=== PATIENT | male | born 1945 | race Caucasian/White ===

== ENCOUNTER 2019-02-14 21:21 | Emergency (ER) | payer MEDICARE, OTHER, SELFPAY ==
[2019-02-14 21:30] VITALS: BP 190/88; PULSE 80; RESP 16; TEMP 36.9; O2SAT 99; BMI 30.1
--- NOTE | 2019-02-14 21:57 | ED_ITS ---
HPI - Dental/Oral General Chief complaint: Dental/Oral Stated complaint: states he has an infected tooth Time Seen by Provider: 02/14/19 21:49 Source: patient Mode of arrival: ambulatory Limitations: no limitations History of Present Illness HPI Narrative: Patient is a 73-year-old male who states that a couple days ago he was flossing his teeth and afterwards started having pain in his left upper mouth. He has a prior physician and he thinks that maybe wall flossing he caused a small infection of the gum in this area. He has some pain medication at home for another issue which he has been taking but feels that he could potentially need antibiotics. No fevers. No problems breathing. No your symptoms. Related Data Home Medications Medication Instructions Recorded Confirmed [TORAVASTATIN] #0 11/29/17 aspirin 325 mg PO QDAY #0 11/29/17 carvedilol [Coreg] 12.5 mg PO BID #0 11/29/17 donepezil [Aricept] 10 mg PO HS #0 11/29/17 lisinopril 20 mg PO QDAY #0 11/29/17 omeprazole 20 mg PO QDAY #0 11/29/17 Previous Rx's Medication Instructions Recorded penicillin V potassium 500 mg PO QID 6 Days #24 tab 02/14/19 penicillin V potassium 500 mg PO QID 7 Days #28 tab 02/14/19 Allergies Allergy/AdvReac Type Severity Reaction Status Date / Time smallpox vaccine,live Allergy Unknown Unverified 06/17/18 09:00 [SMALLPOX VACCINE,LIVE] Review of Systems Constitutional Denies fever(s) and Denies headache(s) ENT Ears, Nose, Mouth, and Throat: Reports dental pain, Denies vertigo, Denies dizziness, Denies headache(s), Denies neck pain, Denies sore throat and Denies throat swelling Comments: Left upper mouth dental pain Cardiovascular Denies dyspnea Respiratory Denies cough and Denies dyspnea Musculoskeletal Denies neck pain Integumentary/Breasts Denies rash Neurologic Denies vertigo, Denies dizziness and Denies headache(s) Hematologic/Lymphatic Denies easy bleeding and Denies easy bruising Allergic/Immunologic Denies throat swelling FORMERLY [facility] Medical History Hyperlipidemia (Acute) Hypertension (Acute) Social History Smoking Status: Never smoker Social History Smoking Status: Never smoker Exam Initial Vital Signs Initial Vital Signs: Vital Signs Temperature 98.4 F 02/14/19 21:30 Pulse Rate 80 02/14/19 21:30 Respiratory Rate 16 02/14/19 21:30 Blood Pressure 190/88 H 02/14/19 21:30 Pulse Oximetry 99 02/14/19 21:30 Const General: cooperative, healthy appearing, comfortable, well developed, well groomed and No acute distress Orientation: alert and awake HENMT Head: normal to inspection Ears: TM's normal bilaterally Nose: external nose normal Face and sinus: normal facial exam Mouth: oral mucosae normal Teeth and gingiva: other (Red area above tooth 14. ) Resp Effort & Inspection: normal respiratory effort Auscultation: clear to auscultation bilaterally Skin Lesions: no lesions Rashes: no rashes Psych Appearance: grossly normal and well kempt Course Orders Ordered: Discontinued Medications Penicillin V Potassium (Penicillin Vk 250mg Tab Prepack) 1 bottle MISC SEEINSTR ONE Stop: 02/14/19 21:58 Last Admin: 02/14/19 22:07 Dose: 1 bottle Penicillin V Potassium (Veetids) 500 mg PO NOW ONE Stop: 02/14/19 21:58 Last Admin: 02/14/19 22:07 Dose: Not Given Vital Signs - 8 hr 02/14/19 21:30 Temperature 98.4 F Pulse Rate 80 Respiratory Rate 16 Blood Pressure 190/88 H Pulse Oximetry 99 MDM - Dental/Oral MDM Narrative Medical decision making narrative: No respiratory issues. Patient does have a red area in the gum above the left upper teeth. There is no defined abscess that can be drained here in the emergency department. Was given a prepack for penicillin and a prescription for the remainder of this medication. He has pain medication at home. He has no respiratory issues. Is going to call to make contact with his dentist. He was given strict return precautions and follow-up instructions. He expressed understanding and agreement with plan. Discharge Plan Departure Patient Disposition: Home Clinical Impression: Dental abscess Discharge Date/Time: 02/14/19 22:14 Interventions: ED Discharge Assessment Last Done: 02/14/19 22:12 Instructions: Tooth Abscess Activity Restrictions/Additional Instructions: You were given 1 day's worth of antibiotics here in the emergency department. The prescription is for the remaining course of this antibiotic. I do recommend that you may contact with a new dentist for a follow-up in the event that your symptoms do not improve. Return to the emergency department for any new or worsening symptoms Prescriptions: New penicillin V potassium 500 mg tablet 500 mg PO QID 7 Days Qty: 28 RF: 0 penicillin V potassium 500 mg tablet 500 mg PO QID 6 Days Qty: 24 RF: 0 No Action carvedilol [Coreg] 25 MG tablet 12.5 mg PO BID Qty: 0 RF: 0 lisinopril 20 MG tablet 20 mg PO QDAY Qty: 0 RF: 0 aspirin 325 MG tablet,delayed release (DR/EC) 325 mg PO QDAY Qty: 0 RF: 0 omeprazole 20 MG capsule,delayed release(DR/EC) 20 mg PO QDAY Qty: 0 RF: 0 [TORAVASTATIN] Qty: 0 RF: 0 donepezil [Aricept] 10 MG tablet 10 mg PO HS Qty: 0 RF: 0 Referrals: Didier Owusu MD [Primary Care Provider] -
[2019-02-14] MEDS: PENICILLIN 250 MG TAB PREPACK 1 BOTTLE MISC (22:07)
== END 2019-02-14 22:14 | disposition home or self-care (01) ==
PROVIDERS: Emergency Provider Emergency Medicine; Family Provider Internal Medicine; PCP Internal Medicine
DX: K04.7 Periapical abscess without sinus (principal)
CPT/HCPCS: 99282; 99283

== ENCOUNTER → 2020-07-29 19:12 | Outpatient (ROUT) | payer MEDICARE, OTHER, SELFPAY ==
[2020-07-29 19:30] LABS: Add Manual Diff / Slide Review NO; Basophils Absolute Auto 100 /uL (0-100); Basophils Percent Auto 0.9 % (0-2); Eosinophils Absolute Auto 100 /uL (0-450); Eosinophils Percent Auto 1.8 % (2-4); Hematocrit 32.1 % (41-53); Lymphocytes Absolute Auto 2000 /uL (1100-4500); Lymphocytes Percent Auto 29.8 % (25-40); Mean Corpuscular HGB Conc 34.2 % (30-36); Mean Corpuscular Hemoglobin 35.3 PG (26-34); Monocytes Absolute Auto 700 /uL (0-900); Monocytes Percent Auto 10.4 % (3-14); Neutrophils Absolute Auto 3800 /uL (1500-7000); Neutrophils Percent Auto 57.1 % (50-75); Platelet Count 286 X10^3/uL (150-400); Red Blood Cell Count 3.12 X10^6/uL (4.5-5.9); Red Cell Distribution Width 13.9 % (11.6-14.8); White Blood Cell Count 6.6 X10^3/uL (4.5-11.0)
[2020-07-29 19:36] LABS: Aspartate Aminotransferase 52 IU/L (17-59); BUN Creatinine Ratio 19.5 (6-22); Blood Urea Nitrogen 24 mg/dL (9-20); Calcium 7.5 mg/dL (8.4-10.2); Carbon Dioxide 25 mmol/L (22-32); Chloride 103 mmol/L (98-107); Cholesterol 129 mg/dL (140-199); Estimated Glomerular Filt Rate 57.4 mL/min (>60); Glucose 125 mg/dL (80-110); HDL Cholesterol 59 mg/dL (40-60); HEMOLYSIS < 15 (0-50); LDL Cholesterol Calculated 59 mg/dL (<100); Potassium 4.7 mmol/L (3.4-5.1); Sodium 134 mmol/L (137-145); Triglycerides 54 mg/dL (35-150)
[2020-07-29 20:06] LABS: Prostate Specific Antigen 4.15 ng/mL (0.10-4.00)
== END ==
PROVIDERS: Family Provider Internal Medicine; PCP Internal Medicine; Visit Provider Internal Medicine
DX: I10 Essential (primary) hypertension (principal); E78.2 Mixed hyperlipidemia; Z12.5 Encounter for screening for malignant neoplasm of prostate
CPT/HCPCS: 80048; 80061; 84153; 84450; 85025

== ENCOUNTER → 2020-09-21 15:46 | Outpatient (CLI) | payer MEDICARE, OTHER, SELFPAY | PROVIDERS: Family Provider Internal Medicine; PCP Internal Medicine; Visit Provider Specialist | DX: N39.0 Urinary tract infection, site not specified (principal); R39.9 Unspecified symptoms and signs involving the genitourinary system; N40.1 Benign prostatic hyperplasia with lower urinary tract symptoms; N13.8 Other obstructive and reflux uropathy | CPT/HCPCS: 87086; 99214 ==

== ENCOUNTER → 2021-03-09 13:39 | Outpatient (CLI) | payer MEDICARE, OTHER, SELFPAY ==
[2021-03-09 17:11] LABS: Prostate Specific Antigen 2.92 ng/mL (0.10-4.00)
== END ==
PROVIDERS: Family Provider Internal Medicine; PCP Internal Medicine; Referring Provider Specialist; Visit Provider Specialist
DX: N40.1 Benign prostatic hyperplasia with lower urinary tract symptoms (principal); R97.20 Elevated prostate specific antigen [PSA]; N13.8 Other obstructive and reflux uropathy; R39.9 Unspecified symptoms and signs involving the genitourinary system; Z87.898 Personal history of other specified conditions; R80.9 Proteinuria, unspecified
CPT/HCPCS: 36415; 51798; 81002; 84153; 99213

== ENCOUNTER → 2021-09-06 13:03 | Outpatient (CLI) | payer MEDICARE, OTHER, SELFPAY ==
--- NOTE | 2021-09-06 13:07 | DI.MRI.S_ITS ---
PROCEDURE: MR CERVICAL SPINE WO CON INDICATIONS: Anesthesia of skin TECHNIQUE: Noncontrast sagittal T1 spin echo and T2 fast spin echo, sagittal STIR, foraminal oblique sagittal T2 fast spin echo, and axial gradient echo or T2 fast spin echo through the cervical spine. COMPARISON: None. FINDINGS: Image quality: Excellent. Alignment and Curvature: There is loss of normal cervical lordosis. Mild grade 1 anterolisthesis of C4 on C5 is present. Bone Marrow: Marrow demonstrates normal overall signal. There is mild reactive signal throughout the endplates of the cervical and upper thoracic spine. Spinal Cord: Visualized spinal cord has normal size and signal. No cerebellar tonsillar herniation. Paraspinous Soft Tissues: No paravertebral masses. Prevertebral soft tissues are normal in thickness. C2-C3: Moderate disc desiccation. Mild disc height loss and diffuse disc bulge. Mild right greater than left facet and uncovertebral hypertrophy. Mild canal stenosis. Moderate bilateral foraminal stenosis. C3-C4: Severe disc height loss and desiccation. Mild diffuse disc bulge/osteophyte. Moderate facet and uncovertebral hypertrophy. Moderate to severe canal stenosis. Severe bilateral foraminal stenosis with bilateral C4 nerve root compression. C4-C5: Severe disc height loss and desiccation. Mild diffuse disc bulge. Moderate left greater than right facet and uncovertebral hypertrophy. Moderate to severe canal stenosis. Moderate bilateral foraminal stenosis. C5-C6: Moderate disc height loss and desiccation. Mild diffuse disc bulge with superimposed broad-based left paracentral and posterolateral protrusion. Moderate facet and uncovertebral hypertrophy bilaterally. Severe canal stenosis. Mild left cord flattening. Moderate right and severe left foraminal stenosis. Left C6 nerve root compression. C6-C7: Severe disc height loss and desiccation. Mild diffuse disc bulge with superimposed right paracentral protrusion. Mild facet and uncovertebral hypertrophy bilaterally. Moderate to severe canal stenosis. Minimal right cord flattening. Moderate bilateral foraminal stenosis. C7-T1: Severe disc height loss and desiccation. Mild diffuse disc bulge with superimposed broad-based left posterolateral protrusion. Mild facet and uncovertebral hypertrophy bilaterally. Moderate canal stenosis. Severe left and moderate right foraminal stenosis. Left C8 nerve root compression. IMPRESSION: 1. Multilevel degenerative disc and facet disease, as well as uncovertebral hypertrophy. 2. Multilevel canal stenoses, worst at C5-C6 and C6-C7, where there is minimal cord flattening. 3. Multilevel foraminal stenoses, worst at C3-C4, C5-C6, and C7-T1 where there is associated intraforaminal nerve root compression. Recommend correlation with clinical symptoms to ascertain relevance of these findings. Dictated by: Romero Castillo M.D. on 09/06/2021 at 14:27 Approved by: Romero Castillo M.D. on 09/06/2021 at 14:32
== END ==
PROVIDERS: Family Provider Internal Medicine; PCP Internal Medicine; Referring Provider Internal Medicine; Visit Provider Internal Medicine
DX: M50.31 Other cervical disc degeneration, high cervical region (principal); M48.02 Spinal stenosis, cervical region; R20.0 Anesthesia of skin
CPT/HCPCS: 72141

== ENCOUNTER → 2022-07-09 14:06 | Outpatient (CLI) | payer MEDICARE, OTHER, SELFPAY ==
[2022-07-09 16:39] LABS: Hematocrit 35.3 % (41-53); Hemoglobin 11.9 g/dL (13.5-17.5); Mean Corpuscular HGB Conc 33.6 % (30-36); Mean Corpuscular Hemoglobin 33.7 PG (26-34); Mean Corpuscular Volume 100.4 fL (80-100); Platelet Count 352 X10^3/uL (150-400); Red Blood Cell Count 3.52 X10^6/uL (4.5-5.9); Red Cell Distribution Width 13.5 % (11.6-14.8); White Blood Cell Count 8.7 X10^3/uL (4.5-11.0)
[2022-07-09 16:45] LABS: Hemoglobin A1C% w Est Avg Glu 4.9 % (4.0-6.0)
[2022-07-09 16:53] LABS: Alanine Aminotransferase 13 IU/L (<50); Albumin Globulin Ratio 1.1 (1.0-2.8); Alkaline Phosphatase 70 U/L (38-126); Aspartate Aminotransferase 30 IU/L (17-59); BUN Creatinine Ratio 22.4 (6-22); Bilirubin Total 0.3 mg/dL (0.2-1.3); Blood Urea Nitrogen 41 mg/dL (9-20); Calcium 8.5 mg/dL (8.4-10.2); Carbon Dioxide 21 mmol/L (22-32); Chloride 107 mmol/L (98-107); Cholesterol 142 mg/dL (140-199); Estimated Glomerular Filt Rate 38 mL/min (>60); Globulin 3.6 g/dL (1.7-4.1); Glucose 92 mg/dL (80-110); HDL Cholesterol 53 mg/dL (40-60); HEMOLYSIS < 15 (0-50); LDL Cholesterol Calculated 77 mg/dL (<100); Sodium 139 mmol/L (137-145); Total Protein 7.6 g/dL (6.3-8.2); Triglycerides 60 mg/dL (35-150)
[2022-07-09 17:26] LABS: TSH w/ Reflex to FT4 0.91 uIU/mL (0.47-4.68)
== END ==
PROVIDERS: Family Provider Internal Medicine; PCP Internal Medicine; Referring Provider Internal Medicine; Visit Provider Internal Medicine
DX: J31.2 Chronic pharyngitis (principal); R73.01 Impaired fasting glucose; I10 Essential (primary) hypertension; E78.2 Mixed hyperlipidemia; I25.10 Atherosclerotic heart disease of native coronary artery without angina pectoris
CPT/HCPCS: 36415; 80053; 80061; 83036; 84443; 85027; 87070

== ENCOUNTER → 2022-10-10 12:45 | Outpatient (CLI) | payer MEDICARE, OTHER, SELFPAY ==
--- NOTE | 2022-10-10 12:46 | DI.RAD.S_ITS ---
PROCEDURE: XR CHEST 2V INDICATIONS: shortness of breath TECHNIQUE: 2 views of the chest were acquired. COMPARISON: None. FINDINGS: Surgical changes and devices: None. Lungs and pleura: No consolidation. Prominent pulmonary markings. No pleural effusions or pneumothorax. Mediastinum: Mediastinal contours are normal. Heart size is normal. Bones and chest wall: No suspicious bony abnormalities. Soft tissues appear unremarkable. IMPRESSION: No consolidation. Prominent pulmonary markings. This could be due to emphysematous change or interstitial lung disease. Dictated by: Felix Marmolejo M.D. on 10/10/2022 at 13:52 Approved by: Felix Marmolejo M.D. on 10/10/2022 at 13:54
[2022-10-10 14:06] LABS: Hematocrit 34.4 % (41-53); Hemoglobin 11.5 g/dL (13.5-17.5); Mean Corpuscular HGB Conc 33.4 % (30-36); Mean Corpuscular Hemoglobin 32.4 PG (26-34); Mean Corpuscular Volume 97.2 fL (80-100); Platelet Count 279 X10^3/uL (150-400); Red Blood Cell Count 3.53 X10^6/uL (4.5-5.9); Red Cell Distribution Width 13.5 % (11.6-14.8); White Blood Cell Count 8.7 X10^3/uL (4.5-11.0)
[2022-10-10 14:35] LABS: Alanine Aminotransferase 16 IU/L (<50); Albumin Globulin Ratio 1.1 (1.0-2.8); Alkaline Phosphatase 77 U/L (38-126); Aspartate Aminotransferase 25 IU/L (17-59); BUN Creatinine Ratio 18.6 (6-22); Bilirubin Total 0.8 mg/dL (0.2-1.3); Blood Urea Nitrogen 40 mg/dL (9-20); Calcium 9.2 mg/dL (8.4-10.2); Carbon Dioxide 20 mmol/L (22-32); Chloride 103 mmol/L (98-107); Estimated Glomerular Filt Rate 31 mL/min (>60); Globulin 3.6 g/dL (1.7-4.1); Glucose 111 mg/dL (80-110); HEMOLYSIS < 15 (0-50); Potassium 5.1 mmol/L (3.4-5.1); Sodium 137 mmol/L (137-145); Total Protein 7.6 g/dL (6.3-8.2)
[2022-10-10 14:43] LABS: NT-proBNP (BNP-Adult 18+) 4640 pg/mL (<450)
== END ==
PROVIDERS: Family Provider Internal Medicine; PCP Internal Medicine; Referring Provider Internal Medicine; Visit Provider Internal Medicine
DX: I25.10 Atherosclerotic heart disease of native coronary artery without angina pectoris (principal); I50.22 Chronic systolic (congestive) heart failure; I10 Essential (primary) hypertension
CPT/HCPCS: 36415; 71046; 80053; 83880; 85027

== ENCOUNTER → 2022-10-18 12:06 | Outpatient (CLI) | payer MEDICARE, OTHER, SELFPAY ==
--- NOTE | 2022-10-18 12:08 | DI.ECHO.S_ITS ---
[facility] +---------+ : : [address] : [place] : : : : [id number] : : : : Phone: [phone]+ Echocardiogram Report + + :Name: JAVIER CAMARILLO Study Date: 10/18/2022 Height: 63 in : :[facility] ReadingLocation: Weight: 164 lb : : Gender: Male BSA: 1.8 m2 : :: 1945 Age: 76 yrs BP: 156/80 mmHg: :Reason For Study: Atherosclerotic heart disease, chronic : :systolic CHF : :Ordering Physician: ALDAIR, : :CRISTOBAL Performed By: Ranjana Dodson : :Referring: CRISTOBAL QUINTEROS : + + Interpretation Summary 1) Normal left ventricular size with moderately to severely reduced systolic function (EF 30-35%). 2) The apical 1/3rd of the myocardium extending to mid to distal septum are akinetic/aneurysmal. Rest of the LV is hypokinetic. 3) Normal right ventricular size with mildly to moderately reduced function. 4) There is moderate mitral regurgitation. 5) The right ventricular systolic pressure is estimated to be at least 46 mmHg based on an estimated right atrial pressure of 15 mm Hg. 6) Compared to the Echo done 06/19/2016, mitral regurgitation has worsened from mild to moderate on this study. Procedure: A two-dimensional transthoracic echocardiogram with color flow and Doppler was performed. The patient was in atrial flutter with heart rates between 48-62 bpm during the exam. Left Ventricle: Left ventricular wall thickness is normal. The left ventricle is normal in size. The ejection fraction is estimated to be 30-35%. The apical 1/3rd of the myocardium extending to mid to distal septum are akinetic. Rest of the LV is hypokinetic. Diastolic parameters suggest a pseudonormalization pattern, consistent with probable elevated filling pressures. Right Ventricle: The right ventricle is normal size. Right ventricular systolic function is mild to moderately reduced. Atria: The left atrium is moderately dilated. The right atrium is mildly dilated. There is no Doppler evidence for an interatrial shunt. Mitral Valve: The mitral valve leaflets are mildly calcified. The mitral valve leaflets appear mildly thickened, but open well. There is moderate mitral regurgitation. Compared to the prior echo study, there has been an increase in the severity of mitral regurgitation. Aortic Valve: The aortic valve is trileaflet. The aortic valve is moderately calcified. There is mildly reduced leaflet mobility. There is no aortic valve stenosis. There is mild aortic regurgitation. Tricuspid Valve: The tricuspid valve is normal. There is mild tricuspid regurgitation. The right ventricular systolic pressure is estimated to be at least 46 mmHg based on an estimated right atrial pressure of 15 mm Hg. Pulmonic Valve: The pulmonic valve leaflets are thin and pliable; valve motion is normal. There is mild pulmonic regurgitation. Great Vessels: The aortic root is borderline dilated. The dimensions of the ascending aorta are normal. The IVC is dilated (diameter is greater than 2.1 cm) and it collapses less than 50% with a sniff. This suggests a high right atrial pressure of 15 mm Hg. Pericardium/ Pleura There is no pericardial effusion. There is no pleural effusion. MMode/2D Measurements & Calculations LVIDd: 5.1 cm LVOT diam: 2.0 cm LVIDs: 4.3 cm Ao root diam: 4.0 cm FS: 15.7 % asc Aorta Diam: 3.4 cm EPSS: 1.7 cm IVSd: 1.0 cm LVPWd: 1.0 cm LV steel. diameter/BSA (cm/m^2): 2.9 LV sys. diameter/BSA (cm/m^2): 2.4 LA A2 area: 19.4 cm2 RA long axis: 5.7 cm LA A4 area: 19.6 cm2 RA area: 20.2 cm2 LA length (vol): 5.2 cm RA vol: 61.2 ml LA vol: 61.7 ml RA : 34.4 ml/m2 LA vol index: 34.7 ml/m2 RVD1 (basal): 3.5 cm LVLs ap4: 8.4 cm LVLd ap2: 9.5 cm TAPSE_phl: 1.1 cm LVLs ap2: 9.2 cm Doppler Measurements & Calculations Ao V2 max: 125.7 cm/sec LVOT Max Isael: 113.7 cm/sec Ao V2 mean: 94.0 cm/sec LV V1 max P.2 mmHg Ao max P.0 mmHg LV V1 VTI: 26.3 cm Ao mean P.0 mmHg CANDICE(I,D): 2.6 cm2 Ao V2 VTI: 32.1 cm CANDICE(V,D): 2.8 cm2 sev ratio: 0.82 CANDICE indexed to BSA (cm^2/m^2): 1.4 AI P1/2t: 810.7 msec AI dec slope: 120.0 cm/sec2 MV E max isael: 114.3 cm/sec TR max isael: 274.0 cm/sec Med Peak E' Isael: 7.0 cm/sec TR max P.7 mmHg E/E' med: 16.2 PA V2 max: 92.7 cm/sec Lat Peak E' Isael: 10.9 cm/sec PA V2 mean: 56.1 cm/sec E/E' lat: 10.5 PA mean P.3 mmHg E/e' average: 13.4 MV dec time: 0.20 sec MVA(VTI): 2.0 cm2 MV V2 mean: 53.0 cm/sec MR VTI: 166.7 cm MV mean P.3 mmHg MV V2 VTI: 40.6 cm SV(LVOT): 82.5 ml AV P1/2t-pr_phl: 828.5 msec AV VR_phl: 0.90 CANDICE(VTI)/BSA_phl: 1.4 MV P1/2t-pr_phl: 57.7 msec Reading Physician:05:09 PM
== END ==
PROVIDERS: Family Provider Internal Medicine; PCP Internal Medicine; Referring Provider Internal Medicine; Visit Provider Internal Medicine
DX: I08.3 Combined rheumatic disorders of mitral, aortic and tricuspid valves (principal); I25.10 Atherosclerotic heart disease of native coronary artery without angina pectoris; I50.22 Chronic systolic (congestive) heart failure
CPT/HCPCS: 93306

== ENCOUNTER → 2022-10-24 14:53 | Outpatient (CLI) | payer MEDICARE, OTHER, SELFPAY ==
[2022-10-24 15:55] LABS: BUN Creatinine Ratio 23.2 (6-22); Blood Urea Nitrogen 35 mg/dL (9-20); Calcium 8.9 mg/dL (8.4-10.2); Carbon Dioxide 20 mmol/L (22-32); Chloride 106 mmol/L (98-107); Estimated Glomerular Filt Rate 47 mL/min (>60); Glucose 100 mg/dL (80-110); HEMOLYSIS < 15 (0-50); Potassium 4.9 mmol/L (3.4-5.1); Sodium 137 mmol/L (137-145)
== END ==
PROVIDERS: Family Provider Internal Medicine; PCP Internal Medicine; Referring Provider Internal Medicine; Visit Provider Internal Medicine
DX: I10 Essential (primary) hypertension (principal); I48.3 Typical atrial flutter
CPT/HCPCS: 36415; 80048

== ENCOUNTER → 2022-11-08 15:03 | Outpatient (CLI) | payer MEDICARE, OTHER, SELFPAY ==
[2022-11-08 17:35] LABS: BUN Creatinine Ratio 20.7 (6-22); Blood Urea Nitrogen 41 mg/dL (9-20); Calcium 9.4 mg/dL (8.4-10.2); Carbon Dioxide 25 mmol/L (22-32); Chloride 96 mmol/L (98-107); Estimated Glomerular Filt Rate 34 mL/min (>60); Glucose 116 mg/dL (80-110); HEMOLYSIS < 15 (0-50); Potassium 3.5 mmol/L (3.4-5.1); Sodium 138 mmol/L (137-145)
== END ==
PROVIDERS: Family Provider Internal Medicine; PCP Internal Medicine; Referring Provider Internal Medicine; Visit Provider Internal Medicine
DX: I50.22 Chronic systolic (congestive) heart failure (principal)
CPT/HCPCS: 36415; 80048

== ENCOUNTER → 2022-12-07 14:39 | Outpatient (CLI) | payer MEDICARE, OTHER, SELFPAY ==
[2022-12-07 15:15] LABS: Hemoglobin A1C% w Est Avg Glu 5.4 % (4.0-6.0)
[2022-12-07 15:36] LABS: BUN Creatinine Ratio 16.5 (6-22); Blood Urea Nitrogen 26 mg/dL (9-20); Calcium 8.9 mg/dL (8.4-10.2); Carbon Dioxide 28 mmol/L (22-32); Chloride 100 mmol/L (98-107); Estimated Glomerular Filt Rate 44 mL/min (>60); Glucose 96 mg/dL (80-110); HEMOLYSIS < 15 (0-50); Potassium 4.7 mmol/L (3.4-5.1); Sodium 138 mmol/L (137-145)
== END ==
PROVIDERS: Family Provider Internal Medicine; PCP Internal Medicine; Referring Provider Internal Medicine; Visit Provider Internal Medicine
DX: R73.01 Impaired fasting glucose (principal); I10 Essential (primary) hypertension; N18.32 Chronic kidney disease, stage 3b
CPT/HCPCS: 36415; 80048; 83036

== ENCOUNTER 2023-02-12 10:44 | Emergency (ER) | payer MEDICARE, OTHER, SELFPAY ==
[2023-02-12] VITALS (13 sets, daily range): BP systolic 131–176; BP diastolic 67–84; PULSE 67–100; RESP 13–38; TEMP 36.2; O2SAT 96–99; BMI 28.3
--- NOTE | 2023-02-12 10:58 | DI.RAD.S_ITS ---
PROCEDURE: XR CHEST 1V INDICATIONS: Shortness of breath TECHNIQUE: One view of the chest was acquired. COMPARISON: [facility], CR, XR CHEST 2V, 10/10/2022, 13:05. FINDINGS: Surgical changes and devices: None. Lungs and pleura: Chronic senescent lung markings without new dense consolidation or pleural effusion. Low lung volumes are present. Mediastinum: Heart size is at the upper limit of normal. Bones and chest wall: No suspicious bony lesions. Overlying soft tissues appear unremarkable. IMPRESSION: No new dense consolidation or pleural effusion. Dictated by: Alexander Kelley M.D. on 02/12/2023 at 11:43 Approved by: Alexander Kelley M.D. on 02/12/2023 at 11:45
--- NOTE | 2023-02-12 11:04 | ED_ITS ---
HPI - General Adult General Chief complaint: Shortness of Breath/Dyspnea Stated complaint: can't breathe/SOB/irregular pulse/HX cardiac Time Seen by Provider: 02/12/23 10:59 Source: patient and family Mode of arrival: Wheelchair History of Present Illness HPI narrative: Patient is a 77-year-old male. Does have a history of heart failure. Is on diuretics. Also has a history of atrial flutter. Is on anticoagulation for this. Has had some issues with shortness of breath. His last echocardiogram was earlier this year. An ejection fraction of approximately 40%. He is here for evaluation of shortness of breath, feeling his pulse being irregular, shortness of breath on exertion. No lower extremity swelling. No fevers. No coughing. He does admit that he has not been taking his diuretic as frequently as he should because it does cause him to urinate frequently. He is here with his who provides some of the HPI. Related Data Home Medications Medication Instructions Recorded Confirmed aspirin 325 mg tablet,delayed 325 mg PO QDAY ##0 11/29/17 12/07/22 release Previous Rx's Medication Instructions Recorded apixaban 2.5 mg tablet (Eliquis) 2.5 mg PO BID #180 tabs 10/10/22 amlodipine 5 mg tablet 5 mg PO DAILY #90 tabs 10/17/22 albuterol sulfate 90 mcg/actuation 2 puff inhalation Q6H PRN 10/24/22 aerosol inhaler shortness of breath or wheezing #8.5 grams atorvastatin 40 mg tablet 40 mg PO DAILY #90 tabs 11/08/22 torsemide 20 mg tablet 20 mg PO DAILY #30 tabs 11/28/22 erythromycin 5 mg/gram (0.5 %) eye 1 applic EYE-LEFT TID #3.5 grams 12/07/22 ointment oxycodone 5 mg tablet 5 mg PO BEDTIME #90 tabs 12/07/22 Allergies Allergy/AdvReac Type Severity Reaction Status Date / Time smallpox vaccine,live Allergy Unknown Verified 02/12/23 10:56 [SMALLPOX VACCINE,LIVE] Review of Systems Constitutional Constitutional: Reports system reviewed and no additional complaints, except as documented Cardiovascular Cardiovascular: Reports system reviewed and no additional complaints, except as documented Respiratory Respiratory: Reports system reviewed and no additional complaints, except as documented Gastrointestinal Gastrointestinal: Reports system reviewed and no additional complaints, except as documented Integumentary/Breasts Skin/Breast: Reports system reviewed and no additional complaints, except as documented Neurologic Neurologic: Reports system reviewed and no additional complaints, except as documented Hematologic/Lymphatic On Anticoagulants: Yes Patient History Medical History Allergic rhinitis Atrial flutter Benign prostatic hyperplasia with urinary obstruction Chronic anticoagulation Chronic low back pain Chronic UTI Chronic, continuous use of opioids Coronary artery disease (~1998) Elevated PSA Essential hypertension (~1998) GERD (gastroesophageal reflux disease) (~2004) Hearing loss (~2004) Heart attack (~1997) History of elevated PSA (~2004) Hyperlipidemia Hypertension Impaired fasting glucose Irritable bowel syndrome Mixed hyperlipidemia Overweight Primary osteoarthritis involving multiple joints Stage 3b chronic kidney disease (CKD) Wears glasses Surgical History Anesthesia H/O circumcision History of angioplasty Hx of vasectomy Family History Father History of heart disease Mother Respiratory failure Brother Parkinson's disease Grandfather Cancer Social History marital status: number of children: 2 Smoking Status: Former smoker Tobacco: How many years used: 20 quit status: quit date established alcohol intake: current caffeine: Yes Smoking Status: Former smoker alcohol intake frequency: 0-2 drinks per day Substance Use Type: does not use Exam Initial Vital Signs Initial Vital Signs: Vital Signs Temperature 97.1 F L 02/12/23 10:50 Pulse Rate 72 02/12/23 10:50 Respiratory Rate 29 H 02/12/23 10:50 Blood Pressure 141/84 H 02/12/23 10:50 Pulse Oximetry 96 02/12/23 10:50 Oxygen Delivery Method Room Air 02/12/23 10:50 Const General: cooperative, comfortable and No ill appearing HENMT Head: normal to inspection and normocephalic Resp Effort & Inspection: tachypneic Auscultation: clear to auscultation bilaterally Cardio Rate: regular rate Rhythm: regular rhythm GI Inspection: normal to inspection Skin General: no rashes or lesions noted Neuro General: patient alert, patient awake and moves all extremities Extrem General: normal to inspection and capillary refill normal Course Orders Ordered: ED Orders 02/12/23 10:57 COVID19 -Nasal RAPID Stat Complete Blood Count AUTO DIFF Stat Comprehensive Metabolic Panel Stat Lactate (Lactic Acid) Stat NT-proBNP (BNP-Adult 18+) Stat Procalcitonin Stat Prothrombin Time INR Stat Troponin I Stat 02/12/23 10:58 XR chest 1V Stat Measure peak expiratory flow ONCE RT Consult Eval and Treat NOW 02/12/23 11:07 EKG-12 Lead Routine EKG-12 Lead Stat 02/12/23 11:49 Urine Microscopic Stat Discontinued Medications Albuterol (Albuterol 2.5 Mg/3 Ml Neb (Adult)) 2.5 mg INH NOW ONE Stop: 02/12/23 11:05 Last Admin: 02/12/23 11:20 Dose: 2.5 mg Documented By: PEPE Aspirin (Aspirin Ec 325 Mg Tablet) 325 mg PO NOW ONE Stop: 02/12/23 13:43 Last Admin: 02/12/23 13:53 Dose: 325 mg Documented By: BOZENA Aspirin (Aspirin Ec 325 Mg Tablet) 325 mg PO NOW ONE Stop: 02/12/23 14:42 Last Admin: 02/12/23 14:49 Dose: 325 mg Documented By: ANGIE Furosemide 60 mg/ Sodium (Chloride) 56 mls @ 112 mls/hr IV NOW ONE Stop: 02/12/23 11:07 Last Infusion: 02/12/23 12:00 Dose: 0 mls/hr Documented By: Admin: 02/12/23 11:13 Dose: 112 mls/hr Documented By: ANAHI Vital Signs Vital signs: Vital Signs - 8 hr 02/12/23 10:50 02/12/23 10:54 02/12/23 10:54 Temperature 97.1 F L Pulse Rate 72 100 H Respiratory Rate 29 H 38 H Blood Pressure 141/84 H 141/84 H Pulse Oximetry 96 96 Oxygen Delivery Method Room Air 02/12/23 11:00 02/12/23 11:00 02/12/23 11:30 Temperature Pulse Rate 69 68 Respiratory Rate 18 23 Blood Pressure 154/73 H Pulse Oximetry 99 98 Oxygen Delivery Method 02/12/23 11:31 02/12/23 11:31 02/12/23 12:00 Temperature Pulse Rate 68 Respiratory Rate 18 Blood Pressure 159/70 H 157/71 H Pulse Oximetry 97 Oxygen Delivery Method 02/12/23 12:00 02/12/23 12:30 02/12/23 12:30 Temperature Pulse Rate 69 68 Respiratory Rate 17 16 Blood Pressure 140/67 Pulse Oximetry 96 97 Oxygen Delivery Method 02/12/23 13:00 02/12/23 13:00 02/12/23 13:30 Temperature Pulse Rate 67 68 Respiratory Rate 13 22 Blood Pressure 131/67 Pulse Oximetry 96 97 Oxygen Delivery Method 02/12/23 13:31 02/12/23 13:31 02/12/23 14:00 Temperature Pulse Rate 68 Respiratory Rate 17 Blood Pressure 159/76 H 154/73 H Pulse Oximetry 97 Oxygen Delivery Method Room Air 02/12/23 14:00 02/12/23 14:28 02/12/23 14:22 Temperature Pulse Rate 68 68 71 Respiratory Rate 17 20 13 Blood Pressure Pulse Oximetry 97 96 98 Oxygen Delivery Method Room Air Room Air 02/12/23 14:22 Temperature Pulse Rate Respiratory Rate Blood Pressure 176/82 H Pulse Oximetry Oxygen Delivery Method Medical Decision Making Lab Data Lab results reviewed: Yes I reviewed the patient's lab results. 02/12/23 10:57 02/12/23 10:57 Labs: Lab Results 02/12/23 02/12/23 02/12/23 Range/Units 10:57 10:57 10:57 WBC 10.7 (4.5-11.0) X10^3/uL RBC 4.01 L (4.5-5.9) X10^6/uL Hgb 13.4 L (13.5-17.5) g/dL Hct 39.3 L (41-53) % MCV 98.0 (80-100) fL MCH 33.3 (26-34) PG MCHC 34.0 (30-36) % RDW 15.7 H (11.6-14.8) % Plt Count 381 (150-400) X10^3/uL Neut % (Auto) 59.4 (50-75) % Lymph % (Auto) 26.3 (25-40) % [place] % (Auto) 11.6 (3-14) % Eos % (Auto) 1.7 L (2-4) % Baso % (Auto) 1.0 (0-2) % Neut # (Auto) 6400 (6401-8865) /uL Lymph # (Auto) 2800 (5767-2336) /uL [place] # (Auto) 1200 H (0-900) /uL Eos # (Auto) 200 (0-450) /uL Baso # (Auto) 100 (0-100) /uL PT 14.8 H (10.1-12.7) SECONDS INR 1.3 (0.9-1.3) Sodium (137-145) mmol/L Potassium (3.4-5.1) mmol/L Chloride (98-107) mmol/L Carbon Dioxide (22-32) mmol/L BUN (9-20) mg/dL Creatinine (0.66-1.25) mg/dL Estimated GFR (>60) mL/min BUN/Creatinine Ratio (6-22) Glucose (80-110) mg/dL Lactate (0.7-2.1) mmol/L Calcium (8.4-10.2) mg/dL Total Bilirubin (0.2-1.3) mg/dL AST (17-59) IU/L ALT (<50) IU/L Alkaline Phosphatase (38-126) U/L Troponin I (0.01-0.034) ng/mL NT-Pro-B Natriuret Pep (<450) pg/mL Total Protein (6.3-8.2) g/dL Albumin (3.5-5.0) g/dL Globulin (1.7-4.1) g/dL Albumin/Globulin Ratio (1.0-2.8) Procalcitonin (<0.5) ng/mL Urine RBC (0-5/HPF) Urine WBC (0-5/HPF) Ur Squamous Epith Cells (0-5/HPF) Urine Bacteria (None) Ur Culture Indicated? SARS-CoV-2 (PCR) Negative (Negative) 02/12/23 02/12/23 02/12/23 Range/Units 10:57 10:57 10:57 WBC (4.5-11.0) X10^3/uL RBC (4.5-5.9) X10^6/uL Hgb (13.5-17.5) g/dL Hct (41-53) % MCV (80-100) fL MCH (26-34) PG MCHC (30-36) % RDW (11.6-14.8) % Plt Count (150-400) X10^3/uL Neut % (Auto) (50-75) % Lymph % (Auto) (25-40) % [place] % (Auto) (3-14) % Eos % (Auto) (2-4) % Baso % (Auto) (0-2) % Neut # (Auto) (1290-7800) /uL Lymph # (Auto) (2171-0496) /uL [place] # (Auto) (0-900) /uL Eos # (Auto) (0-450) /uL Baso # (Auto) (0-100) /uL PT (10.1-12.7) SECONDS INR (0.9-1.3) Sodium 138 (137-145) mmol/L Potassium 4.0 (3.4-5.1) mmol/L Chloride 104 (98-107) mmol/L Carbon Dioxide 21 L (22-32) mmol/L BUN 28 H (9-20) mg/dL Creatinine 1.69 H (0.66-1.25) mg/dL Estimated GFR 41 L (>60) mL/min BUN/Creatinine Ratio 16.6 (6-22) Glucose 132 H (80-110) mg/dL Lactate 3.0 H (0.7-2.1) mmol/L Calcium 8.9 (8.4-10.2) mg/dL Total Bilirubin 1.0 (0.2-1.3) mg/dL AST 38 (17-59) IU/L ALT 22 (<50) IU/L Alkaline Phosphatase 94 (38-126) U/L Troponin I 0.020 (0.01-0.034) ng/mL NT-Pro-B Natriuret Pep 2730 H (<450) pg/mL Total Protein 8.2 (6.3-8.2) g/dL Albumin 4.3 (3.5-5.0) g/dL Globulin 3.9 (1.7-4.1) g/dL Albumin/Globulin Ratio 1.1 (1.0-2.8) Procalcitonin 0.05 (<0.5) ng/mL Urine RBC (0-5/HPF) Urine WBC (0-5/HPF) Ur Squamous Epith Cells (0-5/HPF) Urine Bacteria (None) Ur Culture Indicated? SARS-CoV-2 (PCR) (Negative) 02/12/23 02/12/23 Range/Units 11:49 13:45 WBC (4.5-11.0) X10^3/uL RBC (4.5-5.9) X10^6/uL Hgb (13.5-17.5) g/dL Hct (41-53) % MCV (80-100) fL MCH (26-34) PG MCHC (30-36) % RDW (11.6-14.8) % Plt Count (150-400) X10^3/uL Neut % (Auto) (50-75) % Lymph % (Auto) (25-40) % [place] % (Auto) (3-14) % Eos % (Auto) (2-4) % Baso % (Auto) (0-2) % Neut # (Auto) (0801-1857) /uL Lymph # (Auto) (3042-3339) /uL [place] # (Auto) (0-900) /uL Eos # (Auto) (0-450) /uL Baso # (Auto) (0-100) /uL PT (10.1-12.7) SECONDS INR (0.9-1.3) Sodium (137-145) mmol/L Potassium (3.4-5.1) mmol/L Chloride (98-107) mmol/L Carbon Dioxide (22-32) mmol/L BUN (9-20) mg/dL Creatinine (0.66-1.25) mg/dL Estimated GFR (>60) mL/min BUN/Creatinine Ratio (6-22) Glucose (80-110) mg/dL Lactate 1.8 (0.7-2.1) mmol/L Calcium (8.4-10.2) mg/dL Total Bilirubin (0.2-1.3) mg/dL AST (17-59) IU/L ALT (<50) IU/L Alkaline Phosphatase (38-126) U/L Troponin I (0.01-0.034) ng/mL NT-Pro-B Natriuret Pep (<450) pg/mL Total Protein (6.3-8.2) g/dL Albumin (3.5-5.0) g/dL Globulin (1.7-4.1) g/dL Albumin/Globulin Ratio (1.0-2.8) Procalcitonin (<0.5) ng/mL Urine RBC 30-100/hpf H (0-5/HPF) Urine WBC 0-1/hpf (0-5/HPF) Ur Squamous Epith Cells None seen (0-5/HPF) Urine Bacteria None seen (None) Ur Culture Indicated? Cult not indicated SARS-CoV-2 (PCR) (Negative) Urine Dip Bedside Urine Glucose Negative Bedside Urine Bilirubin - Negative Bedside Urine Ketone - Negative Urine Specific [place] 1.010 Bedside Urine Occult Blood +++ Bedside Urine pH 5.5 Bedside Urine Protein + 30 Bedside Urine Urobilinogen - Negative Bedside Urine Nitrite - Negative Bedside Urine Leukocytes - Negative Esterase Point of care testing: Urine Dip Bedside Urine Glucose Negative Bedside Urine Bilirubin - Negative Bedside Urine Ketone - Negative Urine Specific [place] 1.010 Bedside Urine Occult Blood +++ Bedside Urine pH 5.5 Bedside Urine Protein + 30 Bedside Urine Urobilinogen - Negative Bedside Urine Nitrite - Negative Bedside Urine Leukocytes - Negative Esterase Imaging Data Chest x-ray: Radiologist's Impression: PROCEDURE:? XR CHEST 1V ? INDICATIONS:? Shortness of breath ? TECHNIQUE:? One view of the chest was acquired.? ? COMPARISON:? [facility], , XR CHEST 2V, 10/10/2022, 13:05. ? FINDINGS:? ? Surgical changes and devices:? None.? ? Lungs and pleura:? Chronic senescent lung markings without new dense consolidation or pleural effusion.? Low lung volumes are present. ? Mediastinum:? Heart size is at the upper limit of normal. ? Bones and chest wall:? No suspicious bony lesions.? Overlying soft tissues appear unremarkable.? ? IMPRESSION:? No new dense consolidation or pleural effusion. ECG Data Attestation: I personally reviewed and interpreted this ECG as follows: Interpretation: Atrial flutter Ventricular rate is [address] T wave changes MDM Narrative Medical decision making narrative: BNP is elevated but not as high as it has been in the past. He was given Lasix and did diurese greater than 1 L of urine. Afterwards he stated that he felt much better. He was able to get up and walk around without becoming short of breath. Is not hypoxic. I have low suspicion for pneumonia. I have a high suspicion that he is retaining fluid most likely because he has not been taking his diuretic on a daily basis. Rather than increasing the amount of diuretic he is on we discussed the importance of him taking it every day. No indication for admission to the hospital. Low suspicion for infection. Will discharge patient home. He was given return precautions. Both he and his expressed understanding and agreement. Discharge Plan Departure Patient Disposition: Home Clinical Impression: Congestive heart failure Instructions: DI for Heart Failure Activity Restrictions/Additional Instructions: I do recommend that you continue to take all of your medications as directed to include taking your diuretic on a daily basis. Keep all of your scheduled medical appointments. Return to the emergency department for new or worsening symptoms. Prescriptions: No Action aspirin 325 MG tablet,delayed release (DR/EC) 325 mg PO QDAY Qty: 0 torsemide 20 mg tablet 20 mg PO DAILY Qty: 30 5RF Eliquis 2.5 mg tablet 2.5 mg PO BID Qty: 180 3RF amlodipine 5 mg tablet 5 mg PO DAILY Qty: 90 3RF albuterol sulfate 90 mcg/actuation HFA aerosol inhaler 2 puff inhalation Q6H PRN (Reason: shortness of breath or wheezing) Qty: 8.5 5RF atorvastatin 40 mg tablet 40 mg PO DAILY Qty: 90 3RF erythromycin 5 mg/gram (0.5 %) ointment 1 applic EYE-LEFT TID Qty: 3.5 1RF Rx Instructions: 0.25gram TID oxycodone 5 mg tablet 5 mg PO BEDTIME Qty: 90 0RF Referrals: Didier Owusu MD [Primary Care Provider] - Stand Alone Forms: Patient Portal/API
[2023-02-12 11:13] LABS: INR 1.3 (0.9-1.3); Prothrombin Time 14.8 SECONDS (10.1-12.7)
[2023-02-12] MEDS: FUROSEMIDE 60 MG in SODIUM CHLORIDE 0.9% 50 ML 112 MG IV (11:13)
[2023-02-12 11:14] LABS: Add Manual Diff / Slide Review NO; Basophils Absolute Auto 100 /uL (0-100); Eosinophils Absolute Auto 200 /uL (0-450); Eosinophils Percent Auto 1.7 % (2-4); Hematocrit 39.3 % (41-53); Hemoglobin 13.4 g/dL (13.5-17.5); Lymphocytes Absolute Auto 2800 /uL (1100-4500); Lymphocytes Percent Auto 26.3 % (25-40); Mean Corpuscular Hemoglobin 33.3 PG (26-34); Monocytes Absolute Auto 1200 /uL (0-900); Monocytes Percent Auto 11.6 % (3-14); Neutrophils Absolute Auto 6400 /uL (1500-7000); Neutrophils Percent Auto 59.4 % (50-75); Platelet Count 381 X10^3/uL (150-400); Red Blood Cell Count 4.01 X10^6/uL (4.5-5.9); Red Cell Distribution Width 15.7 % (11.6-14.8); White Blood Cell Count 10.7 X10^3/uL (4.5-11.0)
[2023-02-12] MEDS: ALBUTEROL 2.5 MG/3 ML NEB (ADULT) INH (11:20)
[2023-02-12 11:21] LABS: Alanine Aminotransferase 22 IU/L (<50); Albumin 4.3 g/dL (3.5-5.0); Albumin Globulin Ratio 1.1 (1.0-2.8); Alkaline Phosphatase 94 U/L (38-126); Aspartate Aminotransferase 38 IU/L (17-59); BUN Creatinine Ratio 16.6 (6-22); Blood Urea Nitrogen 28 mg/dL (9-20); Calcium 8.9 mg/dL (8.4-10.2); Carbon Dioxide 21 mmol/L (22-32); Chloride 104 mmol/L (98-107); Estimated Glomerular Filt Rate 41 mL/min (>60); Globulin 3.9 g/dL (1.7-4.1); Glucose 132 mg/dL (80-110); HEMOLYSIS 25 (0-50); Sodium 138 mmol/L (137-145); Total Protein 8.2 g/dL (6.3-8.2)
[2023-02-12 11:26] LABS: COVID19 -Nasal RAPID Negative (Negative)
[2023-02-12 11:31] LABS: NT-proBNP (BNP-Adult 18+) 2730 pg/mL (<450)
[2023-02-12 12:09] LABS: Procalcitonin 0.05 ng/mL (<0.5)
[2023-02-12 12:28] LABS: Bacteria Urine None Seen; RBC Urine 30-100/HPF (0-5/HPF); WBC Urine 0-1/HPF (0-5/HPF)
[2023-02-12 12:29] LABS: Culture Indicated Urine Cult Not Indicated; Squamous Epithelial Cell Urine None Seen (0-5/HPF)
--- NOTE | 2023-02-12 12:31 | PC.NURSE ---
Pt reports SOB is improving after breathing treatment and IV lasix. Monitoring respiratory status and urinary output. Pt did endorse that urine is pink tinged and that is new for him. UA and Micro ordered.
[2023-02-12 13:02] LABS: Reflexed Lactate in 2 Hours Y
[2023-02-12] MEDS: ASPIRIN EC 325 MG TABLET PO ×2 (13:53→14:49)
[2023-02-12 14:07] LABS: Lactate 2HR (Lactic Acid Rflx) 1.8 mmol/L (0.7-2.1)
== END 2023-02-12 14:50 | disposition home or self-care (01) ==
PROVIDERS: Emergency Provider Emergency Medicine; Family Provider Internal Medicine; PCP Internal Medicine
DX: I50.9 Heart failure, unspecified (principal); Z79.01 Long term (current) use of anticoagulants; Z20.822 Contact with and (suspected) exposure to COVID-19
CPT/HCPCS: 36415; 71045; 80053; 81003; 81015; 83605; 83880; 84145; 84484; 85025; 85610; 87635; 93005; 96365; 99284; C9803; J1940; J7613

== ENCOUNTER → 2023-03-07 14:56 | Outpatient (CLI) | payer MEDICARE, OTHER, SELFPAY ==
[2023-03-07 16:29] LABS: BUN Creatinine Ratio 15.8 (6-22); Blood Urea Nitrogen 31 mg/dL (9-20); Calcium 9.3 mg/dL (8.4-10.2); Carbon Dioxide 28 mmol/L (22-32); Chloride 101 mmol/L (98-107); Estimated Glomerular Filt Rate 34 mL/min (>60); Glucose 138 mg/dL (80-110); HEMOLYSIS < 15 (0-50); Potassium 4.2 mmol/L (3.4-5.1); Sodium 139 mmol/L (137-145)
== END ==
PROVIDERS: Family Provider Internal Medicine; PCP Internal Medicine; Referring Provider Internal Medicine; Visit Provider Internal Medicine
DX: I50.22 Chronic systolic (congestive) heart failure (principal)
CPT/HCPCS: 36415; 80048

== ENCOUNTER → 2023-11-12 12:30 | Outpatient (CLI) | payer MEDICARE, OTHER, SELFPAY ==
--- NOTE | 2023-11-12 12:32 | DI.RAD.S_ITS ---
PROCEDURE: XR CERVICAL SPINE MIN 6V INDICATIONS: fall, neck pain TECHNIQUE: 7 views of the cervical spine acquired. COMPARISON: [facility], MR, MR CERVICAL SPINE WO CON, 09/06/2021, 13:22. FINDINGS: Bones: No fractures or dislocations to the C7 level. There is grade 1 anterolisthesis of C4 on C5. Moderate degenerative disease at C3-C4, C4-C5, C5-C6 and C6-C7. Bilateral facet arthropathy, most pronounced and severe at C4-C5 on the left. Flexion and extension: Reduced range of motion with stable alignment. Oblique images: Mild bony foraminal stenoses, moderate at C3-C4 on the left, mild C4-C5 and C5-C6 bilaterally. Soft tissues: No prevertebral soft tissue swelling. IMPRESSION: 1. Multilevel degenerative disc and facet disease in cervical spine as described. 2. Grade 1 anterolisthesis of C4 on C5. 3. There is reduced range of motion but stable alignment on flexion extension. 4. Multilevel foraminal stenoses as described. Dictated by: Sean Harden M.D. on 11/12/2023 at 14:03 Approved by: Sean Harden M.D. on 11/12/2023 at 14:07
== END ==
PROVIDERS: Family Provider Internal Medicine; PCP Internal Medicine; Referring Provider Internal Medicine; Visit Provider Internal Medicine
DX: S16.1XXA Strain of muscle, fascia and tendon at neck level, initial encounter (principal); M50.31 Other cervical disc degeneration, high cervical region; M47.812 Spondylosis without myelopathy or radiculopathy, cervical region; M48.02 Spinal stenosis, cervical region; M43.12 Spondylolisthesis, cervical region; X58.XXXA Exposure to other specified factors, initial encounter
CPT/HCPCS: 72052

== ENCOUNTER → 2024-01-16 14:59 | Outpatient (CLI) | payer MEDICARE, OTHER, SELFPAY ==
[2024-01-16 16:18] LABS: Aspartate Aminotransferase 39 IU/L (17-59); Blood Urea Nitrogen 32 mg/dL (9-20); Calcium 9.1 mg/dL (8.4-10.2); Carbon Dioxide 24 mmol/L (22-32); Chloride 106 mmol/L (98-107); Estimated Glomerular Filt Rate 38 mL/min (>60); Glucose 156 mg/dL (80-110); HEMOLYSIS 29 (0-50); Potassium 4.1 mmol/L (3.4-5.1); Sodium 139 mmol/L (137-145)
[2024-01-16 18:03] LABS: Hemoglobin A1C% w Est Avg Glu 5.4 % (4.0-6.0)
[2024-01-16 18:11] LABS: Microalbumin Urine Random > 114.0 mg/dL (0-1.6)
[2024-01-16 19:27] LABS: Creatinine Urine Random 461.2 mg/dL
== END ==
PROVIDERS: Family Provider Internal Medicine; PCP Internal Medicine; Referring Provider Internal Medicine; Visit Provider Internal Medicine
DX: I50.22 Chronic systolic (congestive) heart failure (principal); R73.01 Impaired fasting glucose; N18.32 Chronic kidney disease, stage 3b
CPT/HCPCS: 36415; 80048; 82043; 82570; 83036; 84450

== ENCOUNTER → 2024-04-21 12:18 | Outpatient (CLI) | payer MEDICARE, OTHER, SELFPAY ==
[2024-04-21 14:53] LABS: BUN Creatinine Ratio 13.8 (6-22); Blood Urea Nitrogen 27 mg/dL (9-20); Carbon Dioxide 22 mmol/L (22-32); Chloride 106 mmol/L (98-107); Estimated Glomerular Filt Rate 34 mL/min (>60); Glucose 97 mg/dL (80-110); HEMOLYSIS < 15 (0-50); Potassium 4.8 mmol/L (3.4-5.1); Sodium 138 mmol/L (137-145)
== END ==
PROVIDERS: Family Provider Internal Medicine; PCP Internal Medicine; Referring Provider Internal Medicine; Visit Provider Internal Medicine
DX: N18.32 Chronic kidney disease, stage 3b (principal)
CPT/HCPCS: 36415; 80048

== ENCOUNTER → 2024-06-17 14:46 | Outpatient (CLI) | payer MEDICARE, OTHER, SELFPAY ==
[2024-06-17 15:25] LABS: Hematocrit 42.3 % (41-53); Hemoglobin 14.6 g/dL (13.5-17.5); Mean Corpuscular HGB Conc 34.5 % (30-36); Mean Corpuscular Hemoglobin 33.8 PG (26-34); Mean Corpuscular Volume 97.9 fL (80-100); Platelet Count 408 X10^3/uL (150-400); Red Blood Cell Count 4.32 X10^6/uL (4.5-5.9); Red Cell Distribution Width 13.7 % (11.6-14.8); White Blood Cell Count 10.9 X10^3/uL (4.5-11.0)
[2024-06-17 16:02] LABS: Hemoglobin A1C% w Est Avg Glu 5.5 % (4.0-6.0)
[2024-06-17 16:50] LABS: Aspartate Aminotransferase 35 IU/L (17-59); BUN Creatinine Ratio 14.3 (6-22); Blood Urea Nitrogen 28 mg/dL (9-20); Calcium 10.8 mg/dL (8.4-10.2); Carbon Dioxide 23 mmol/L (22-32); Chloride 102 mmol/L (98-107); Cholesterol 185 mg/dL (140-199); Estimated Glomerular Filt Rate 34 mL/min (>60); Glucose 139 mg/dL (80-110); HDL Cholesterol 59 mg/dL (40-60); HEMOLYSIS < 15 (0-50); LDL Cholesterol Calculated 92 mg/dL (<100); Potassium 4.6 mmol/L (3.4-5.1); Sodium 137 mmol/L (137-145); Triglycerides 171 mg/dL (35-150)
== END ==
PROVIDERS: Family Provider Internal Medicine; PCP Internal Medicine; Referring Provider Internal Medicine; Visit Provider Internal Medicine
DX: I50.22 Chronic systolic (congestive) heart failure (principal); R73.01 Impaired fasting glucose; E78.2 Mixed hyperlipidemia
CPT/HCPCS: 36415; 80048; 80061; 83036; 84450; 85027

== ENCOUNTER → 2024-09-14 16:33 | Outpatient (CLI) | payer MEDICARE, OTHER, SELFPAY ==
[2024-09-14 18:06] LABS: Creatinine Urine Random 171.29 mg/dL
[2024-09-14 18:18] LABS: Blood Urea Nitrogen 39 mg/dL (9-20); Calcium 9.3 mg/dL (8.4-10.2); Carbon Dioxide 27 mmol/L (22-32); Chloride 101 mmol/L (98-107); Estimated Glomerular Filt Rate 34 mL/min (>60); Glucose 104 mg/dL (80-110); HEMOLYSIS < 15 (0-50); Sodium 138 mmol/L (137-145)
[2024-09-14 19:06] LABS: Microalbumin Urine Random 249.8 mg/dL (0-1.6)
== END ==
PROVIDERS: Family Provider Internal Medicine; PCP Internal Medicine; Referring Provider Internal Medicine; Visit Provider Internal Medicine
DX: N18.32 Chronic kidney disease, stage 3b (principal); I50.22 Chronic systolic (congestive) heart failure
CPT/HCPCS: 36415; 80048; 82043; 82570

== ENCOUNTER → 2024-11-23 16:46 | Outpatient (CLI) | payer MEDICARE, OTHER, SELFPAY ==
[2024-11-23 17:47] LABS: BUN Creatinine Ratio 14.7 (6-22); Blood Urea Nitrogen 32 mg/dL (9-20); Calcium 8.5 mg/dL (8.4-10.2); Carbon Dioxide 21 mmol/L (22-32); Chloride 102 mmol/L (98-107); Estimated Glomerular Filt Rate 30 mL/min (>60); Glucose 97 mg/dL (80-110); HEMOLYSIS < 15 (0-50); Potassium 4.6 mmol/L (3.4-5.1); Sodium 138 mmol/L (137-145)
== END ==
LOC: LAB 16:47
PROVIDERS: Family Provider Internal Medicine; PCP Internal Medicine; Referring Provider Internal Medicine; Visit Provider Internal Medicine
DX: I50.22 Chronic systolic (congestive) heart failure (principal)
CPT/HCPCS: 36415; 80048

== ENCOUNTER → 2025-01-26 14:56 | Outpatient (CLI) | payer MEDICARE, OTHER, SELFPAY ==
--- NOTE | 2025-01-26 14:58 | DI.RAD.S_ITS ---
PROCEDURE: XR CHEST 2V INDICATIONS: cough TECHNIQUE: 2 views of the chest were acquired. COMPARISON: [facility], CR, XR CHEST 1V, 02/12/2023, 11:17. FINDINGS: Surgical changes and devices: None. Lungs and pleura: Lungs are clear. No pleural effusions or pneumothorax. Mediastinum: Mediastinal contours are normal. Heart size is normal. Bones and chest wall: No suspicious bony abnormalities. Soft tissues appear unremarkable. IMPRESSION: No acute cardiopulmonary abnormality is seen. Dictated by: Juan F Carson M.D. on 01/27/2025 at 2:11 Approved by: Juan F Carson M.D. on 01/27/2025 at 2:12
== END ==
PROVIDERS: Family Provider Internal Medicine; PCP Internal Medicine; Referring Provider Internal Medicine; Visit Provider Internal Medicine
DX: J20.9 Acute bronchitis, unspecified (principal)
CPT/HCPCS: 71046

== ENCOUNTER 2025-03-17 13:33 | Emergency (ER) | payer MEDICARE, OTHER, SELFPAY ==
[2025-03-17] VITALS (11 sets, daily range): BP systolic 130–174; BP diastolic 69–92; PULSE 69–99; RESP 14–24; TEMP 36.4; O2SAT 96–97; BMI 30.1
--- NOTE | 2025-03-17 13:45 | DI.RAD.S_ITS ---
PROCEDURE: XR CHEST 1V INDICATIONS: Chest Pain TECHNIQUE: One view of the chest was acquired. COMPARISON: [facility], CR, XR CHEST 2V, 01/26/2025, 14:54. [facility], CR, XR CHEST 1V, 02/12/2023, 11:17. FINDINGS: Surgical changes and devices: None. Lungs and pleura: Lungs are clear. No pleural effusions or pneumothorax. Mediastinum: Mediastinal contours appear normal. Heart size is normal. Bones and chest wall: No suspicious bony lesions. Overlying soft tissues appear unremarkable. IMPRESSION: No acute cardiopulmonary abnormality is seen. Approved by: Edwardo Pinto M.D. on 03/17/2025 at 14:26
--- NOTE | 2025-03-17 13:48 | EKG_ITS ---
[address] [address] Test Date: 2025-03-17 Pat Name: Jace Santacruz Department: Room: Gender: Male [employer] Application Administrator: JESS : [id number] Requested By: Order Number: [id number] Reading MD: Eldon Modi MD Measurements Intervals [place] Rate: 88 P: 64 NE: 288 QRS: -25 QRSD: 94 T: 45 QT: 342 QTc: 413 Interpretive Statements Sinus rhythm with marked sinus arrhythmia with 1st degree AV block Anterolateral infarct , age undetermined Electronically Signed On 03-18-2025 7:34:54 PDT by Eldon Modi MD
[2025-03-17 14:03] LABS: Add Manual Diff / Slide Review NO; Basophils Absolute Auto 100 /uL (0-100); Basophils Percent Auto 1.3 % (0-2); Eosinophils Absolute Auto 100 /uL (0-450); Eosinophils Percent Auto 1.3 % (2-4); Hematocrit 41.7 % (41-53); Lymphocytes Absolute Auto 2100 /uL (1100-4500); Lymphocytes Percent Auto 24.4 % (25-40); Mean Corpuscular HGB Conc 33.6 % (30-36); Mean Corpuscular Hemoglobin 33.5 PG (26-34); Mean Corpuscular Volume 99.6 fL (80-100); Monocytes Absolute Auto 1000 /uL (0-900); Monocytes Percent Auto 11.1 % (3-14); Neutrophils Absolute Auto 5300 /uL (1500-7000); Neutrophils Percent Auto 61.9 % (50-75); Platelet Count 357 X10^3/uL (150-400); Red Blood Cell Count 4.19 X10^6/uL (4.5-5.9); Red Cell Distribution Width 13.7 % (11.6-14.8); White Blood Cell Count 8.7 X10^3/uL (4.5-11.0)
[2025-03-17 14:21] LABS: PTT Partial Thromboplastin Tim 35 SECONDS (25.1-36.5)
[2025-03-17 14:22] LABS: INR 1.1 (0.9-1.3); Prothrombin Time 12.1 SECONDS (9.4-12.5)
[2025-03-17 14:30] LABS: Alanine Aminotransferase 22 IU/L (<50); Albumin 4.4 g/dL (3.5-5.0); Albumin Globulin Ratio 1.3 (1.0-2.8); Alkaline Phosphatase 85 U/L (38-126); Aspartate Aminotransferase 39 IU/L (17-59); BUN Creatinine Ratio 15.7 (6-22); Bilirubin Total 0.6 mg/dL (0.2-1.3); Blood Urea Nitrogen 31 mg/dL (9-20); Calcium 8.7 mg/dL (8.4-10.2); Carbon Dioxide 23 mmol/L (22-32); Chloride 104 mmol/L (98-107); Creatine Kinase 105 U/L (55-170); Estimated Glomerular Filt Rate 34 mL/min (>60); Globulin 3.5 g/dL (1.7-4.1); Glucose 159 mg/dL (70-99); HEMOLYSIS < 15 (0-50); Lipase 188 U/L (23-300); Magnesium 1.8 mg/dL (1.6-2.3); Potassium 3.7 mmol/L (3.4-5.1); Sodium 139 mmol/L (137-145); Total Protein 7.9 g/dL (6.3-8.2)
[2025-03-17 14:41] LABS: NT-proBNP (BNP-Adult 18+) 644 pg/mL (<450); Troponin I 0.027 ng/mL (0.01-0.034)
--- NOTE | 2025-03-17 15:16 | ED.ARRPALP ---
HPI - Arrhythmia/Palpitations General Chief Complaint: Arrhythmia/Palpitations Stated Complaint: heart palpations Time Seen by Provider: 03/17/25 13:53 Mode of arrival: Ambulatory History of Present Illness HPI narrative: 79-year-old gentleman history of CAD x1 stent on Eliquis hypertension dyslipidemia presents with heart palpitations 2 weeks ago and then yesterday evening again came in to be evaluated given his cardiac history. He denies active chest pain shortness of breath dyspnea on exertion legs pain leg swelling diaphoresis or nausea vomiting. He did not take anything for his other than his regular medicines he is a retired physicians. Other than what is stated 14 point review of system is negative Related Data Home Medications ?Medication ?Instructions ?Recorded ?Confirmed aspirin 325 mg tablet,delayed 325 mg PO QDAY ##0 11/29/17 02/25/25 release Previous Rx's ?Medication ?Instructions ?Recorded spironolactone 25 mg tablet 25 mg PO DAILY #90 tabs 03/09/24 empagliflozin 25 mg tablet 25 mg PO DAILY #90 tabs 06/17/24 (Jardiance) nitroglycerin 0.4 mg sublingual 0.4 mg sublingual Q5-15M PRN chest 06/29/24 tablet pain #25 tabs amlodipine 5 mg tablet 5 mg PO DAILY #90 tabs 07/30/24 torsemide 20 mg tablet 20 mg PO DAILY #90 tabs 09/14/24 rosuvastatin 40 mg tablet 40 mg PO DAILY #90 tabs 09/28/24 duloxetine 30 mg capsule,delayed 30 mg PO DAILY #90 caps 11/23/24 release apixaban 2.5 mg tablet (Eliquis) 2.5 mg PO BID #180 tabs 12/01/24 oxycodone 5 mg tablet 5 mg PO TID PRN pain #180 tabs 02/25/25 metoprolol succinate 25 mg 12.5 mg (1/2 x 25 mg) PO DAILY #45 03/02/25 tablet,extended release 24 hr tabs mirtazapine 30 mg tablet 30 mg PO BEDTIME #90 tabs 03/08/25 Allergies Allergy/AdvReac Type Severity Reaction Status Date / Time smallpox vaccine,live Allergy Unknown Verified 03/17/25 13:38 (SMALLPOX VACCINE,LIVE) lisinopril AdvReac Intermediate elevated Verified 03/17/25 13:38 creatinine Review of Systems Review of Systems ROS Unobtainable: All systems reviewed & are unremarkable except as noted in HPI and below Patient History Medical History Allergic rhinitis Atrial flutter Benign prostatic hyperplasia with urinary obstruction Chronic anticoagulation Chronic low back pain Chronic systolic congestive heart failure Chronic UTI Chronic, continuous use of opioids Coronary artery disease (~1998) Depression, major, recurrent Elevated PSA Essential hypertension (~1998) GERD (gastroesophageal reflux disease) (~2004) Hearing loss (~2004) History of elevated PSA (~2004) Hyperlipidemia Hypertension Impaired fasting glucose Irritable bowel syndrome Mixed hyperlipidemia Overweight Primary osteoarthritis involving multiple joints Stage 3b chronic kidney disease (CKD) Wears glasses Surgical History Anesthesia H/O circumcision History of angioplasty Hx of vasectomy Family History Father History of heart disease Mother Respiratory failure Brother Parkinson's disease Grandfather Cancer Social History marital status: number of children: 2 Smoking Status: Former smoker Tobacco: How many years used: 20 quit status: quit date established alcohol intake: current caffeine: Yes Smoking Status: Never smoker alcohol intake frequency: 0-2 drinks per day Exam Narrative Exam Narrative: GENERAL: [79] year old patient appears stated age. Well-developed patient, in mild distress. HEAD: Atraumatic. Normocephalic. EYES: Pupils equal round and reactive. Extraocular motions intact. No scleral icterus. No injection or drainage. NECK: Trachea midline. Non tender CARDIOVASCULAR: Regular rate and rhythm without murmurs, gallops, or rubs. RESPIRATORY: Clear to auscultation. Breath sounds equal bilaterally. No wheezes, rales, or rhonchi. GASTROINTESTINAL: Abdomen soft, non-tender, nondistended. EXTREMITIES: No edema or joint tenderness. BACK: Nontender without deformity or crepitance. No flank tenderness. NEURO: AOx3. SKIN: No rash or erythema of visible areas Initial Vital Signs Initial Vital Signs: Vital Signs Temperature 97.6 F 03/17/25 13:35 Pulse Rate 99 H 03/17/25 13:35 Respiratory Rate 18 03/17/25 13:35 Blood Pressure 174/88 H 03/17/25 13:35 Pulse Oximetry 97 03/17/25 13:35 Oxygen Delivery Method Room Air 03/17/25 13:35 Scores HEART Score Heart Score history: Slightly Suspicious Heart Score EKG: Non-Specific repolarization disturbance Heart Score Age: > or = 65 years old Heart Score risk factors: > 3 risk factors or hx of atherosclerotic disease Heart Score troponin: < or = to normal limit Heart Score Total: 5 Course Orders Ordered: ED Orders 03/17/25 10:32 Trop I [Troponin I] Stat 03/17/25 13:45 XR chest 1V Stat EKG-12 Lead Stat 03/17/25 13:53 Complete Blood Count AUTO DIFF Stat Comprehensive Metabolic Panel Stat Lipase Stat MAG [Magnesium] Stat Magnesium Stat NT-proBNP (BNP-Adult 18+) Stat PTT Partial Thromboplastin Josiah Stat Prothrombin Time INR Stat TSH [Thyroid Stimulating Hormone] Stat Troponin & CK Cardiac Panel Stat Discontinued Medications Aspirin (Aspirin 81 Mg Chew Tab) 324 mg PO NOW ONE Stop: 03/17/25 13:45 Vital Signs Vital signs: Vital Signs - 8 hr 03/17/25 13:35 Temperature 97.6 F Pulse Rate 99 H Respiratory Rate 18 Blood Pressure 174/88 H Pulse Oximetry 97 Oxygen Delivery Method Room Air MDM - Arrhythmia/Palpitations Lab Data 03/17/25 13:53 03/17/25 13:53 Labs: Lab Results 03/17/25 03/17/25 03/17/25 Range/Units 10:32 13:53 13:53 WBC 8.7 (4.5-11.0) X10^3/uL RBC 4.19 L (4.5-5.9) X10^6/uL Hgb 14.0 (13.5-17.5) g/dL Hct 41.7 (41-53) % MCV 99.6 (80-100) fL MCH 33.5 (26-34) PG MCHC 33.6 (30-36) % RDW 13.7 (11.6-14.8) % Plt Count 357 (150-400) X10^3/uL Neut % (Auto) 61.9 (50-75) % Lymph % (Auto) 24.4 L (25-40) % [place] % (Auto) 11.1 (3-14) % Eos % (Auto) 1.3 L (2-4) % Baso % (Auto) 1.3 (0-2) % Neut # (Auto) 5300 (3162-6283) /uL Lymph # (Auto) 2100 (7671-7881) /uL [place] # (Auto) 1000 H (0-900) /uL Eos # (Auto) 100 (0-450) /uL Baso # (Auto) 100 (0-100) /uL PT 12.1 (9.4-12.5) SECONDS INR 1.1 (0.9-1.3) APTT 35 (25.1-36.5) SECONDS Sodium 139 (137-145) mmol/L Potassium 3.7 (3.4-5.1) mmol/L Chloride 104 (98-107) mmol/L Carbon Dioxide 23 (22-32) mmol/L BUN 31 H (9-20) mg/dL Creatinine 1.98 H (0.66-1.25) mg/dL Estimated GFR 34 L (>60) mL/min BUN/Creatinine Ratio 15.7 (6-22) Glucose 159 H (70-99) mg/dL Calcium 8.7 (8.4-10.2) mg/dL Magnesium 1.8 1.7 (1.6-2.3) mg/dL Total Bilirubin 0.6 (0.2-1.3) mg/dL AST 39 (17-59) IU/L ALT 22 (<50) IU/L Alkaline Phosphatase 85 (38-126) U/L Total Creatine Kinase 105 (55-170) U/L Troponin I 0.025 0.027 (0.01-0.034) ng/mL NT-Pro-B Natriuret Pep 644 H (<450) pg/mL Total Protein 7.9 (6.3-8.2) g/dL Albumin 4.4 (3.5-5.0) g/dL Globulin 3.5 (1.7-4.1) g/dL Albumin/Globulin Ratio 1.3 (1.0-2.8) Lipase 188 (23-300) U/L TSH 1.23 (0.47-4.68) uIU/mL Imaging Data Chest x-ray: Radiologist's Impresson: [address] [address] XRay Report Signed Patient: Jace Santacruz MR#: [id number] : 1945 Acct:[id number] Age/Sex: 79 / M Date of Service: 03/17/25 Loc: ED Accession Number: [id number] Procedure: XR chest 1V Ordering Provider: Eldon Smith D.O. PROCEDURE: XR CHEST 1V INDICATIONS: Chest Pain TECHNIQUE: One view of the chest was acquired. COMPARISON: [facility], CR, XR CHEST 2V, 01/26/2025, 14:54. [facility], CR, XR CHEST 1V, 02/12/2023, 11:17. FINDINGS: Surgical changes and devices: None. Lungs and pleura: Lungs are clear. No pleural effusions or pneumothorax. Mediastinum: Mediastinal contours appear normal. Heart size is normal. Bones and chest wall: No suspicious bony lesions. Overlying soft tissues appear unremarkable. IMPRESSION: No acute cardiopulmonary abnormality is seen. ECG Data Interpretation: Sinus Rhythm with Sinus Arrythmia HR 88 NV 288 QRS [address]-t wave change Change compared to 02/12/23 [facility] Narrative Medical decision making narrative: All lab work, vital signs, nurse triage note, medication list previous ER visits and all imaging modalities reviewed. Heart score of 5 troponin 0.025 and 0.027. BUN 31 creatinine 1.98 No active chest pain. Patient will follow up with Dr. Owusu and or Dr. Loo who has since retired at [facility]. Patient did not want to stay any longer and wanted to go home instead. Differential diagnosis includes STEMI, NSTEMI, unstable angina, PE, electrolyte derangement. Discharge Plan Departure Patient Disposition: Home Clinical Impression: Heart palpitations Prescriptions: No Action aspirin 325 MG tablet,delayed release (DR/EC) 325 mg PO QDAY Qty: 0 nitroglycerin 0.4 mg tablet, sublingual 0.4 mg sublingual Q5-15M PRN (Reason: chest pain) Qty: 25 3RF Rx Instructions: do not exceed 3 doses per episode amlodipine 5 mg tablet 5 mg PO DAILY Qty: 90 3RF rosuvastatin 40 mg tablet 40 mg PO DAILY Qty: 90 3RF Eliquis 2.5 mg tablet 2.5 mg PO BID Qty: 180 3RF Rx Instructions: [facility] Fax#:[phone]. Compa's ID number is [id number]. metoprolol succinate 25 mg tablet extended release 24 hr 12.5 mg PO DAILY Qty: 45 3RF mirtazapine 30 mg tablet 30 mg PO BEDTIME Qty: 90 3RF Jardiance 25 mg tablet 25 mg PO DAILY Qty: 90 3RF duloxetine 30 mg capsule,delayed release(DR/EC) 30 mg PO DAILY Qty: 90 3RF spironolactone 25 mg tablet 25 mg PO DAILY Qty: 90 3RF torsemide 20 mg tablet 20 mg PO DAILY Qty: 90 3RF oxycodone 5 mg tablet 5 mg PO TID PRN (Reason: pain) Qty: 180 0RF Referrals: Didier Owusu MD [Primary Care Provider, Internal Medicine] Stand Alone Forms: Patient Portal/API
[2025-03-17 16:01] LABS: Magnesium 1.7 mg/dL (1.6-2.3)
[2025-03-17 16:33] LABS: Thyroid Stimulating Hormone 1.23 uIU/mL (0.47-4.68)
[2025-03-17 17:10] LABS: Troponin I 0.025 ng/mL (0.01-0.034)
--- NOTE | 2025-03-17 18:42 | PC.NURSE ---
pt had a short wave of palpitations at home which resolved prior to arrival. His family insisted that he come to be evaluated. He is symptom free now and states that he feels better and is ready to go home.
== END 2025-03-17 18:57 | disposition home or self-care (01) ==
PROVIDERS: Emergency Provider Family Medicine; Family Provider Internal Medicine; PCP Internal Medicine
DX: R00.2 Palpitations (principal); R07.9 Chest pain, unspecified
CPT/HCPCS: 71045; 80053; 82550; 83690; 83735; 83880; 84443; 84484; 85025; 85610; 85730; 93005; 93010; 99281; 99284

== ENCOUNTER → 2025-03-24 13:59 | Outpatient (CLI) | payer MEDICARE, OTHER, SELFPAY | PROVIDERS: Family Provider Internal Medicine; PCP Internal Medicine; Referring Provider Internal Medicine; Visit Provider Internal Medicine | DX: I48.91 Unspecified atrial fibrillation (principal); I48.92 Unspecified atrial flutter; R00.2 Palpitations | CPT/HCPCS: 93246 ==

== ENCOUNTER 2025-04-11 09:23 | Emergency (ER) | payer MEDICARE, OTHER, SELFPAY ==
[2025-04-11] VITALS (11 sets, daily range): BP systolic 125–169; BP diastolic 60–70; PULSE 52–73; RESP 18–25; O2SAT 91–98; BMI 30.1
--- NOTE | 2025-04-11 09:34 | EKG_ITS ---
[address] [address] Test Date: 2025-04-11 Pat Name: Jace Santacruz Department: Room: Gender: Male Case Management Associate: : 1945 Requested By: Order Number: [id number] Reading MD: Bladimir Zelaya Measurements Intervals [place] Rate: 59 P: LA: QRS: 37 QRSD: 94 T: 44 QT: 382 QTc: 378 Interpretive Statements Atrial flutter with variable AV block Electronically Signed On 04-14-2025 13:05:51 PDT by Bladimir Zelaya
--- NOTE | 2025-04-11 09:37 | DI.RAD.S_ITS ---
PROCEDURE: XR CHEST 1V INDICATIONS: Shortness of breath TECHNIQUE: One view of the chest was acquired. COMPARISON: [facility], CR, XR CHEST 1V, 03/17/2025, 13:50. [facility], CR, XR CHEST 2V, 01/26/2025, 14:54. FINDINGS: Surgical changes and devices: None. Lungs and pleura: Lungs are clear. No pleural effusions or pneumothorax. Mediastinum: Mediastinal contours appear normal. Heart size is normal. Bones and chest wall: No suspicious bony lesions. Overlying soft tissues appear unremarkable. IMPRESSION: No acute cardiopulmonary abnormality is seen. Dictated by: Felix Marmolejo M.D. on 04/11/2025 at 9:05 Approved by: Felix Marmolejo M.D. on 04/11/2025 at 9:07
[2025-04-11] MEDS: FUROSEMIDE 40 MG/4 ML VIAL IV (09:47)
[2025-04-11 09:51] LABS: Add Manual Diff / Slide Review NO; Hematocrit 35.9 % (41-53); Hemoglobin 12.3 g/dL (13.5-17.5); Lymphocytes Absolute Auto 1600 /uL (1100-4500); Mean Corpuscular HGB Conc 34.1 % (30-36); Mean Corpuscular Hemoglobin 33.9 PG (26-34); Mean Corpuscular Volume 99.4 fL (80-100); Platelet Count 271 X10^3/uL (150-400)
[2025-04-11 09:52] LABS: INR 1.5 (0.9-1.3); Prothrombin Time 16.6 SECONDS (9.4-12.5)
[2025-04-11 09:57] LABS: Alanine Aminotransferase 20 IU/L (<50); Albumin 4.2 g/dL (3.5-5.0); Albumin Globulin Ratio 1.3 (1.0-2.8); Alkaline Phosphatase 69 U/L (38-126); Blood Urea Nitrogen 40 mg/dL (9-20); Calcium 8.1 mg/dL (8.4-10.2); Carbon Dioxide 19 mmol/L (22-32); Chloride 105 mmol/L (98-107); Estimated Glomerular Filt Rate 32 mL/min (>60); Globulin 3.2 g/dL (1.7-4.1); Glucose 140 mg/dL (70-99); HEMOLYSIS 20 (0-50); Potassium 3.6 mmol/L (3.4-5.1); Sodium 136 mmol/L (137-145); Total Protein 7.4 g/dL (6.3-8.2)
[2025-04-11 10:06] LABS: NT-proBNP (BNP-Adult 18+) 7420 pg/mL (<450)
[2025-04-11 10:14] LABS: Procalcitonin 0.084 ng/mL (<0.5)
[2025-04-11 11:00] LABS: Coronavirus NL 63 Not Detected (Not Detect); SARS- CoV-2 Not Detected (Not Detecte)
--- NOTE | 2025-04-11 11:50 | ED.SOB ---
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 He has a known history of CHF for which he takes torsemide daily. He admits to taking 1 extra dose of his torsemide this morning when he awoke with this. He also admits to eating excessive amount of very salty foods yesterday which he thinks precipitated this episode. Of note, the patient also has a history of some type of reactive airway disease as he admits to being put on prednisone for his breathing in the past. Related Data Home Medications ?Medication ?Instructions ?Recorded ?Confirmed aspirin 325 mg tablet,delayed 325 mg PO QDAY ##0 11/29/17 03/18/25 release Previous Rx's ?Medication ?Instructions ?Recorded spironolactone 25 mg tablet 25 mg PO DAILY #90 tabs 03/09/24 empagliflozin 25 mg tablet 25 mg PO DAILY #90 tabs 06/17/24 (Jardiance) nitroglycerin 0.4 mg sublingual 0.4 mg sublingual Q5-15M PRN chest 06/29/24 tablet pain #25 tabs amlodipine 5 mg tablet 5 mg PO DAILY #90 tabs 07/30/24 torsemide 20 mg tablet 20 mg PO DAILY #90 tabs 09/14/24 rosuvastatin 40 mg tablet 40 mg PO DAILY #90 tabs 09/28/24 duloxetine 30 mg capsule,delayed 30 mg PO DAILY #90 caps 11/23/24 release apixaban 2.5 mg tablet (Eliquis) 2.5 mg PO BID #180 tabs 12/01/24 oxycodone 5 mg tablet 5 mg PO TID PRN pain #180 tabs 02/25/25 metoprolol succinate 25 mg 12.5 mg (1/2 x 25 mg) PO DAILY #45 03/02/25 tablet,extended release 24 hr tabs mirtazapine 30 mg tablet 30 mg PO BEDTIME #90 tabs 03/08/25 Allergies Allergy/AdvReac Type Severity Reaction Status Date / Time smallpox vaccine,live Allergy Unknown Verified 04/11/25 09:31 (SMALLPOX VACCINE,LIVE) gabapentin AdvReac Intermediate Delirium Verified 04/11/25 09:31 lisinopril AdvReac Intermediate elevated Verified 04/11/25 09:31 creatinine Patient History Medical History Allergic rhinitis Atrial flutter Benign prostatic hyperplasia with urinary obstruction Chronic anticoagulation Chronic low back pain Chronic systolic congestive heart failure Chronic UTI Chronic, continuous use of opioids Coronary artery disease (~1998) Depression, major, recurrent Elevated PSA Essential hypertension (~1998) GERD (gastroesophageal reflux disease) (~2004) Hearing loss (~2004) History of elevated PSA (~2004) Hyperlipidemia Hypertension Impaired fasting glucose Irritable bowel syndrome Mixed hyperlipidemia Overweight Primary osteoarthritis involving multiple joints Stage 3b chronic kidney disease (CKD) Wears glasses Surgical History Anesthesia H/O circumcision History of angioplasty Hx of vasectomy Family History Father History of heart disease Mother Respiratory failure Brother Parkinson's disease Grandfather Cancer Social History marital status: number of children: 2 Smoking Status: Former smoker Tobacco: How many years used: 20 quit status: quit date established alcohol intake: current caffeine: Yes Smoking Status: Former smoker alcohol intake frequency: 0-2 drinks per day Exam Initial Vital Signs Initial Vital Signs: Vital Signs Pulse Rate 73 04/11/25 09:27 Respiratory Rate 20 04/11/25 09:27 Course Course Course Narrative: Patient seen and examined by myself on initial exam he did have coarse breath sounds as well as crackles. So I treated him with DuoNeb, Solu-Medrol, and Lasix. His pain his condition dramatically improved. His chest x-ray was negative as was his respiratory panel and procalcitonin. Of note, he did have a mild elevation of his white count at 12. However, his BNP was much higher than it has ever at our facility. The patient was achieving good diuresis with the Lasix daily we gave him. I offered the patient additional prednisone to treat a possible reactive airway exacerbation but he did not want to do this and therefore I advised him to just treat his CHF exacerbation with doubling his dose of torsemide for the next 3 days and then following up with his PCP as soon as possible and returning to the ER for any change or worsening in his condition such as chest pain or worsening shortness of breath. The patient was in agreement with this plan. Orders Ordered: ED Orders 04/11/25 09:30 Complete Blood Count AUTO DIFF Stat Comprehensive Metabolic Panel Stat NT-proBNP (BNP-Adult 18+) Stat Procalcitonin Stat Prothrombin Time INR Stat 04/11/25 09:37 XR chest 1V Stat EKG-12 Lead Stat RT Consult Eval and Treat STAT 04/11/25 10:08 Respiratory Panel (Film Array) Stat Albuterol/Ipratropium (Albuterol/Ipratropium 3 Ml Ampul) 3 ml INH Q1H PRN PRN Reason: Shortness Of Breath Discontinued Medications Furosemide (Furosemide 40 Mg/4 Ml Vial) 40 mg IV NOW ONE Stop: 04/11/25 09:38 Last Admin: 04/11/25 09:47 Dose: 40 mg Documented By: DANIEL Methylprednisolone (Methylprednisolone 125 Mg/2 Ml Vial) 125 mg IV NOW ONE Stop: 04/11/25 09:38 Last Admin: 04/11/25 09:47 Dose: 125 mg Documented By: DANIEL Vital Signs Vital signs: Vital Signs - 8 hr 04/11/25 09:27 04/11/25 09:29 04/11/25 09:29 Pulse Rate 73 72 Respiratory Rate 20 22 Blood Pressure 161/67 H Pulse Oximetry 96 Oxygen Delivery Method 04/11/25 09:30 04/11/25 09:30 04/11/25 09:31 Pulse Rate 72 73 Respiratory Rate 19 18 Blood Pressure 138/64 161/67 H Pulse Oximetry 96 98 Oxygen Delivery Method Room Air 04/11/25 10:00 04/11/25 10:00 04/11/25 10:30 Pulse Rate 53 L 52 L Respiratory Rate 25 H Blood Pressure 125/60 Pulse Oximetry 94 91 Oxygen Delivery Method 04/11/25 11:00 04/11/25 11:03 04/11/25 11:03 Pulse Rate 53 L 54 L Respiratory Rate 24 Blood Pressure 130/60 Pulse Oximetry 95 95 Oxygen Delivery Method 04/11/25 11:30 04/11/25 11:31 04/11/25 11:31 Pulse Rate 60 59 L Respiratory Rate 22 23 Blood Pressure 169/70 H Pulse Oximetry 97 96 Oxygen Delivery Method MDM - SOB/Dyspnea Differential Diagnosis Differential diagnosis: Likely acute exacerbation of chronic obstructive airways disease, congestive heart failure, community acquired pneumonia, asthma with exacerbation and pulmonary embolism Lab Data 04/11/25 09:30 04/11/25 09:30 Labs: Lab Results 04/11/25 04/11/25 Range/Units 09:30 10:08 WBC 12.9 H (4.5-11.0) X10^3/uL RBC 3.62 L (4.5-5.9) X10^6/uL Hgb 12.3 L (13.5-17.5) g/dL Hct 35.9 L (41-53) % MCV 99.4 (80-100) fL MCH 33.9 (26-34) PG MCHC 34.1 (30-36) % RDW 14.1 (11.6-14.8) % Plt Count 271 (150-400) X10^3/uL Neut % (Auto) 74.7 (50-75) % Lymph % (Auto) 12.6 L (25-40) % [place] % (Auto) 10.7 (3-14) % Eos % (Auto) 1.2 L (2-4) % Baso % (Auto) 0.8 (0-2) % Neut # (Auto) 9600 H (0377-5981) /uL Lymph # (Auto) 1600 (8257-9248) /uL [place] # (Auto) 1400 H (0-900) /uL Eos # (Auto) 100 (0-450) /uL Baso # (Auto) 100 (0-100) /uL PT 16.6 H (9.4-12.5) SECONDS INR 1.5 H (0.9-1.3) Sodium 136 L (137-145) mmol/L Potassium 3.6 (3.4-5.1) mmol/L Chloride 105 (98-107) mmol/L Carbon Dioxide 19 L (22-32) mmol/L BUN 40 H (9-20) mg/dL Creatinine 2.06 H (0.66-1.25) mg/dL Estimated GFR 32 L (>60) mL/min BUN/Creatinine Ratio 19.4 (6-22) Glucose 140 H (70-99) mg/dL Calcium 8.1 L (8.4-10.2) mg/dL Total Bilirubin 0.9 (0.2-1.3) mg/dL AST 35 (17-59) IU/L ALT 20 (<50) IU/L Alkaline Phosphatase 69 (38-126) U/L NT-Pro-B Natriuret Pep 7420 H (<450) pg/mL Total Protein 7.4 (6.3-8.2) g/dL Albumin 4.2 (3.5-5.0) g/dL Globulin 3.2 (1.7-4.1) g/dL Albumin/Globulin Ratio 1.3 (1.0-2.8) Procalcitonin 0.084 (<0.5) ng/mL Chlamy pneumoniae PCR Not detected (Not Detect) Adenovirus (PCR) Not detected (Not Detect) B. pertussis DNA (PCR) Not detected (Not Detect) B.parapertussis DNA PCR Not detected (Not Detecte) Coronavirus OC43 (PCR) Not detected (Not Detect) Coronavirus HKU1 (PCR) Not detected (Not Detect) Coronavirus 229E (PCR) Not detected (Not Detect) SARS-CoV-2 (PCR) Not detected (Not Detecte) Coronavirus NL63 (PCR) Not detected (Not Detect) Human Metapneumovir PCR Not detected (Not Detect) Influenza Type A (PCR) Not detected (Not Detect) Influenza Type B (PCR) Not detected (Not Detect) M. pneumoniae (PCR) Not detected (Not Detect) Parainfluenza 1 (PCR) Not detected (Not Detect) Parainfluenza 2 (PCR) Not detected (Not Detect) Parainfluenza 3 (PCR) Not detected (Not Detect) Parainfluenza 4 (PCR) Not detected (Not Detect) RSV (PCR) Not detected (Not Detect) Entero/Rhino (PCR) Not detected (Not Detect) ECG Data Interpretation: AF w variable AV block. HR 74 Discharge Plan Departure Patient Disposition: Home Clinical Impression: CHF (congestive heart failure) Qualifiers: Heart failure type: unspecified Heart failure chronicity: acute on chronic Qualified Code(s): I50.9 - Heart failure, unspecified Instructions: DI for Heart Failure Activity Restrictions/Additional Instructions: If there is any change or worsening in her condition such as increased shortness of breath, chest pain, or feeling unable to care for herself safely at home then please return to the ER right away for further evaluation. Otherwise, follow up with your PCP as soon as possible. You should have a new echocardiogram in the very near future to re-evaluate the status of your CHF. Prescriptions: No Action aspirin 325 MG tablet,delayed release (DR/EC) 325 mg PO QDAY Qty: 0 nitroglycerin 0.4 mg tablet, sublingual 0.4 mg sublingual Q5-15M PRN (Reason: chest pain) Qty: 25 3RF Rx Instructions: do not exceed 3 doses per episode amlodipine 5 mg tablet 5 mg PO DAILY Qty: 90 3RF rosuvastatin 40 mg tablet 40 mg PO DAILY Qty: 90 3RF Eliquis 2.5 mg tablet 2.5 mg PO BID Qty: 180 3RF Rx Instructions: [facility] Fax#:[phone]. Compa's ID number is [id number]. metoprolol succinate 25 mg tablet extended release 24 hr 12.5 mg PO DAILY Qty: 45 3RF mirtazapine 30 mg tablet 30 mg PO BEDTIME Qty: 90 3RF Jardiance 25 mg tablet 25 mg PO DAILY Qty: 90 3RF duloxetine 30 mg capsule,delayed release(DR/EC) 30 mg PO DAILY Qty: 90 3RF spironolactone 25 mg tablet 25 mg PO DAILY Qty: 90 3RF torsemide 20 mg tablet 20 mg PO DAILY Qty: 90 3RF oxycodone 5 mg tablet 5 mg PO TID PRN (Reason: pain) Qty: 180 0RF Referrals: Didier Owusu MD [Primary Care Provider, Internal Medicine] - As soon as possible Stand Alone Forms: Patient Portal/API
== END 2025-04-11 12:03 | disposition home or self-care (01) ==
PROVIDERS: Emergency Provider Emergency Medicine; Family Provider Internal Medicine; PCP Internal Medicine
DX: I11.0 Hypertensive heart disease with heart failure (principal); I50.9 Heart failure, unspecified; Z87.891 Personal history of nicotine dependence
CPT/HCPCS: 36415; 71045; 80053; 83880; 84145; 85025; 85610; 87633; 93005; 96374; 96375; 99284; J1938; J2919

== ENCOUNTER 2025-05-05 14:48 | Emergency (ER) | payer MEDICARE, OTHER, SELFPAY ==
[2025-05-05] VITALS (13 sets, daily range): BP systolic 138–164; BP diastolic 70–85; PULSE 83–103; RESP 18–26; TEMP 37.1; O2SAT 96–100; BMI 29.2
--- NOTE | 2025-05-05 16:43 | DI.RAD.S_ITS ---
PROCEDURE: XR CHEST 1V INDICATIONS: Chest Pain TECHNIQUE: One view of the chest was acquired. COMPARISON: [facility], CR, XR CHEST 1V, 03/17/2025, 13:50. [facility], CR, XR CHEST 1V, 04/11/2025, 9:36. FINDINGS: Surgical changes and devices: None. Lungs and pleura: Lungs are clear. No pleural effusions or pneumothorax. Mediastinum: Mediastinal contours appear normal. Heart size is normal. Bones and chest wall: No suspicious bony lesions. Overlying soft tissues appear unremarkable. IMPRESSION: Stable radiographic evaluation of the chest without acute cardiopulmonary abnormalities or focal consolidation. Dictated by: Kaveh Sinclair M.D. on 05/05/2025 at 17:08 Approved by: Kaveh Sinclair M.D. on 05/05/2025 at 17:09
[2025-05-05 16:48] LABS: Add Manual Diff / Slide Review NO; Hematocrit 38.7 % (41-53); Hemoglobin 13.3 g/dL (13.5-17.5); Lymphocytes Absolute Auto 2000 /uL (1100-4500); Mean Corpuscular HGB Conc 34.2 % (30-36); Mean Corpuscular Hemoglobin 33.5 PG (26-34); Mean Corpuscular Volume 98.0 fL (80-100); Platelet Count 325 X10^3/uL (150-400)
[2025-05-05 16:50] LABS: INR 1.2 (0.9-1.3); Prothrombin Time 14.0 SECONDS (9.4-12.5)
[2025-05-05 16:52] LABS: PTT Partial Thromboplastin Tim 30 SECONDS (25.1-36.5)
[2025-05-05 17:08] LABS: Alanine Aminotransferase 19 IU/L (<50); Albumin 4.1 g/dL (3.5-5.0); Albumin Globulin Ratio 1.2 (1.0-2.8); Alkaline Phosphatase 88 U/L (38-126); Blood Urea Nitrogen 30 mg/dL (9-20); Calcium 8.6 mg/dL (8.4-10.2); Carbon Dioxide 24 mmol/L (22-32); Chloride 103 mmol/L (98-107); Creatine Kinase 105 U/L (55-170); Estimated Glomerular Filt Rate 29 mL/min (>60); Globulin 3.5 g/dL (1.7-4.1); Glucose 97 mg/dL (70-99); HEMOLYSIS < 15 (0-50); Lipase 232 U/L (23-300); Magnesium 1.6 mg/dL (1.6-2.3); Potassium 4.2 mmol/L (3.4-5.1); Sodium 138 mmol/L (137-145); Total Protein 7.6 g/dL (6.3-8.2)
[2025-05-05 17:19] LABS: NT-proBNP (BNP-Adult 18+) 1120 pg/mL (<450); Troponin I 0.020 ng/mL (0.01-0.034)
--- NOTE | 2025-05-05 18:16 | ED.ARRPALP ---
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 Clear rhythm change, slightly wide complex rate of 140. Associated with palpitations but not pain or diaphoresis. On presenting in the emergency department he is back in a sinus rhythm but still complains of the palpitation sensation. His physician had recommended cardiac rehab for general conditioning. He had not been having palpitations, chest pain, orthopnea, lower extremity edema, no recent fevers cough or chills. Related Data Home Medications ?Medication ?Instructions ?Recorded ?Confirmed aspirin 325 mg tablet,delayed 325 mg PO QDAY ##0 11/29/17 05/05/25 release Previous Rx's ?Medication ?Instructions ?Recorded empagliflozin 25 mg tablet 25 mg PO DAILY #90 tabs 06/17/24 (Jardiance) nitroglycerin 0.4 mg sublingual 0.4 mg sublingual Q5-15M PRN chest 06/29/24 tablet pain #25 tabs amlodipine 5 mg tablet 5 mg PO DAILY #90 tabs 07/30/24 torsemide 20 mg tablet 20 mg PO DAILY #90 tabs 09/14/24 rosuvastatin 40 mg tablet 40 mg PO DAILY #90 tabs 09/28/24 duloxetine 30 mg capsule,delayed 30 mg PO DAILY #90 caps 11/23/24 release apixaban 2.5 mg tablet (Eliquis) 2.5 mg PO BID #180 tabs 12/01/24 mirtazapine 30 mg tablet 30 mg PO BEDTIME #90 tabs 03/08/25 spironolactone 25 mg tablet 25 mg PO DAILY #90 tabs 04/14/25 tamsulosin 0.4 mg capsule 0.4 mg PO BEDTIME #90 caps 04/14/25 oxycodone 5 mg tablet 5 mg PO TID PRN pain #180 tabs 04/26/25 Allergies Allergy/AdvReac Type Severity Reaction Status Date / Time smallpox vaccine,live Allergy Unknown Verified 05/05/25 15:16 (SMALLPOX VACCINE,LIVE) gabapentin AdvReac Intermediate Delirium Verified 05/05/25 15:16 lisinopril AdvReac Intermediate elevated Verified 05/05/25 15:16 creatinine Review of Systems <Alina Damon MD - Last Filed: 05/08/25 08:07> Review of Systems Narrative: Pertinent positive and negative findings as per HPI Patient History <Alina Damon MD - Last Filed: 05/08/25 08:07> Medical History Chronic systolic congestive heart failure Depression, major, recurrent Stage 3b chronic kidney disease (CKD) Chronic anticoagulation Atrial flutter Wears glasses Hearing loss (~2004) Irritable bowel syndrome GERD (gastroesophageal reflux disease) (~2004) Overweight Allergic rhinitis Chronic, continuous use of opioids Primary osteoarthritis involving multiple joints Chronic low back pain Impaired fasting glucose Mixed hyperlipidemia Essential hypertension (~1998) Coronary artery disease (~1998) History of elevated PSA (~2004) Elevated PSA Benign prostatic hyperplasia with urinary obstruction Chronic UTI Hypertension Hyperlipidemia Surgical History Anesthesia History of angioplasty Hx of vasectomy H/O circumcision Family History Father History of heart disease Mother Respiratory failure Brother Parkinson's disease Grandfather Cancer Social History marital status: number of children: 2 Tobacco: How many years used: 20 quit status: quit date established alcohol intake: current caffeine: Yes alcohol intake frequency: 0-2 drinks per day Alcohol type: wine Exam <Alina Damon MD - Last Filed: 05/08/25 08:07> Initial Vital Signs Initial Vital Signs: Vital Signs Temperature 98.7 F 05/05/25 15:07 Pulse Rate 95 H 05/05/25 15:07 Respiratory Rate 18 05/05/25 15:07 Blood Pressure 154/77 H 05/05/25 15:07 Pulse Oximetry 96 05/05/25 15:07 Oxygen Delivery Method Room Air 05/05/25 15:07 General: in no acute distress. Able to give a complete and coherent history. Well-nourished well-developed HEENT: Moist mucous membranes, normal sclera with reactive pupils, Respiratory: Lungs are clear to auscultation, no wheezing no rales no rhonchi. Full and symmetrical air movement Cardiac: Regular rate and rhythm no murmurs no bruits Abdomen: Soft, nontender, no rebound or guarding, no flank pain Neurologic: Grossly neurologically intact with no obvious asymmetries or abnormalities Extremities: No trauma, no lower extremity edema Psych: Cooperative, appropriate insight and affect <Johnathan Mohamud MD - Last Filed: 05/06/25 00:27> Initial Vital Signs Initial Vital Signs: Vital Signs Temperature 98.7 F 05/05/25 15:07 Pulse Rate 95 H 05/05/25 15:07 Respiratory Rate 18 05/05/25 15:07 Blood Pressure 154/77 H 05/05/25 15:07 Pulse Oximetry 96 05/05/25 15:07 Oxygen Delivery Method Room Air 05/05/25 15:07 Course <Alina Damon MD - Last Filed: 05/08/25 08:07> Orders Ordered: Discontinued Medications Aspirin (Aspirin 81 Mg Chew Tab) 324 mg PO NOW ONE Stop: 05/05/25 16:44 Last Admin: 05/05/25 17:03 Dose: Not Given Documented By: NANCY Vital Signs Vital signs: Vital Signs - 8 hr 05/05/25 16:27 05/05/25 16:27 05/05/25 16:30 Pulse Rate 95 H Respiratory Rate 20 Blood Pressure 164/85 H 156/79 H Pulse Oximetry 99 Oxygen Delivery Method 05/05/25 16:30 05/05/25 16:52 05/05/25 16:52 Pulse Rate 91 H 89 Respiratory Rate 26 H 23 Blood Pressure 151/78 H Pulse Oximetry 99 98 Oxygen Delivery Method 05/05/25 17:00 05/05/25 17:00 05/05/25 17:30 Pulse Rate 91 H Respiratory Rate 22 Blood Pressure 138/70 151/80 H Pulse Oximetry 98 Oxygen Delivery Method 05/05/25 17:30 05/05/25 18:00 05/05/25 18:00 Pulse Rate 86 87 Respiratory Rate 20 24 Blood Pressure 152/82 H Pulse Oximetry 97 98 Oxygen Delivery Method 05/05/25 18:30 05/05/25 18:30 05/05/25 19:00 Pulse Rate 84 87 Respiratory Rate 21 22 Blood Pressure 162/79 H Pulse Oximetry 97 98 Oxygen Delivery Method 05/05/25 19:01 05/05/25 19:01 05/05/25 19:30 Pulse Rate 88 89 Respiratory Rate 25 H 20 Blood Pressure 151/75 H Pulse Oximetry 98 99 Oxygen Delivery Method Room Air 05/05/25 19:30 05/05/25 20:00 05/05/25 20:00 Pulse Rate 83 Respiratory Rate 19 Blood Pressure 164/82 H 148/80 H Pulse Oximetry 99 Oxygen Delivery Method Room Air <Johnathan Mohamud MD - Last Filed: 05/06/25 00:27> Orders Ordered: Discontinued Medications Aspirin (Aspirin 81 Mg Chew Tab) 324 mg PO NOW ONE Stop: 05/05/25 16:44 Last Admin: 05/05/25 17:03 Dose: Not Given Documented By: NANCY Vital Signs Vital signs: Vital Signs - 8 hr 05/05/25 16:27 05/05/25 16:27 05/05/25 16:30 Pulse Rate 95 H Respiratory Rate 20 Blood Pressure 164/85 H 156/79 H Pulse Oximetry 99 Oxygen Delivery Method 05/05/25 16:30 05/05/25 16:52 05/05/25 16:52 Pulse Rate 91 H 89 Respiratory Rate 26 H 23 Blood Pressure 151/78 H Pulse Oximetry 99 98 Oxygen Delivery Method 05/05/25 17:00 05/05/25 17:00 05/05/25 17:30 Pulse Rate 91 H Respiratory Rate 22 Blood Pressure 138/70 151/80 H Pulse Oximetry 98 Oxygen Delivery Method 05/05/25 17:30 05/05/25 18:00 05/05/25 18:00 Pulse Rate 86 87 Respiratory Rate 20 24 Blood Pressure 152/82 H Pulse Oximetry 97 98 Oxygen Delivery Method 05/05/25 18:30 05/05/25 18:30 05/05/25 19:00 Pulse Rate 84 87 Respiratory Rate 21 22 Blood Pressure 162/79 H Pulse Oximetry 97 98 Oxygen Delivery Method 05/05/25 19:01 05/05/25 19:01 05/05/25 19:30 Pulse Rate 88 89 Respiratory Rate 25 H 20 Blood Pressure 151/75 H Pulse Oximetry 98 99 Oxygen Delivery Method Room Air 05/05/25 19:30 05/05/25 20:00 05/05/25 20:00 Pulse Rate 83 Respiratory Rate 19 Blood Pressure 164/82 H 148/80 H Pulse Oximetry 99 Oxygen Delivery Method Room Air MDM - Arrhythmia/Palpitations <Alina Damon MD - Last Filed: 05/08/25 08:07> Lab Data 05/05/25 15:23 05/05/25 15:23 Labs: Lab Results 05/05/25 05/05/25 Range/Units 15:23 19:00 WBC 9.1 (4.5-11.0) X10^3/uL RBC 3.95 L (4.5-5.9) X10^6/uL Hgb 13.3 L (13.5-17.5) g/dL Hct 38.7 L (41-53) % MCV 98.0 (80-100) fL MCH 33.5 (26-34) PG MCHC 34.2 (30-36) % RDW 13.7 (11.6-14.8) % Plt Count 325 (150-400) X10^3/uL Neut % (Auto) 67.7 (50-75) % Lymph % (Auto) 21.5 L (25-40) % [place] % (Auto) 9.8 (3-14) % Eos % (Auto) 0.4 L (2-4) % Baso % (Auto) 0.6 (0-2) % Neut # (Auto) 6200 (1202-5090) /uL Lymph # (Auto) 2000 (1604-4558) /uL [place] # (Auto) 900 (0-900) /uL Eos # (Auto) 0 (0-450) /uL Baso # (Auto) 100 (0-100) /uL PT 14.0 H (9.4-12.5) SECONDS INR 1.2 (0.9-1.3) APTT 30 (25.1-36.5) SECONDS Sodium 138 (137-145) mmol/L Potassium 4.2 (3.4-5.1) mmol/L Chloride 103 (98-107) mmol/L Carbon Dioxide 24 (22-32) mmol/L BUN 30 H (9-20) mg/dL Creatinine 2.25 H (0.66-1.25) mg/dL Estimated GFR 29 L (>60) mL/min BUN/Creatinine Ratio 13.3 (6-22) Glucose 97 (70-99) mg/dL Calcium 8.6 (8.4-10.2) mg/dL Magnesium 1.6 (1.6-2.3) mg/dL Total Bilirubin 0.4 (0.2-1.3) mg/dL AST 36 (17-59) IU/L ALT 19 (<50) IU/L Alkaline Phosphatase 88 (38-126) U/L Total Creatine Kinase 105 (55-170) U/L Troponin I 0.020 0.024 (0.01-0.034) ng/mL NT-Pro-B Natriuret Pep 1120 H (<450) pg/mL Total Protein 7.6 (6.3-8.2) g/dL Albumin 4.1 (3.5-5.0) g/dL Globulin 3.5 (1.7-4.1) g/dL Albumin/Globulin Ratio 1.2 (1.0-2.8) Lipase 232 (23-300) U/L MDM Narrative Medical decision making narrative: CC: Episode of ventricular tachycardia while exercising at cardiac rehab. No pain, palpations notable Complicating co-morbidities: Prior coronary artery disease, congestive heart failure, hypertension, hyperlipidemia, anticoagulated on apixaban Data collected from: patient Medical records reviewed: Primary care notes from Dr. Owusu are reviewed. Patient had a similar presentation to the emergency department March 17, 2025 with minimally elevated troponin and heart score of 5. He chose to leave the hospital at that time With him again on April 11 with increased dyspnea was diagnosed with congestive heart failure at that time Differential considered: Brief episode of SVT without other significant problem, NSTEMI, electrolyte abnormality, acute coronary syndrome Exam documented above, pertinent findings include: Exam is entirely benign at this time Lab Test results independently reviewed as above. Pertinent findings: CBC is unremarkable Chemistries show creatinine increased from 2-2.25. Electrolytes are otherwise unremarkable BNP is improved from a month ago down Initial troponin is low at 0.02 Independently reviewed EKG: Rhythm strip from Cardiac rehab is reviewed. EKG shows sinus rhythm at a rate of 94 without acute ischemic changes Imaging studies independently reviewed: No acute changes to suggest her failure, pneumothorax or pulmonary infiltrate Consultations: Brief discussion with Dr Bass who was uncomfortable with any recommendations as he has not examined the patient. 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 Workup in the emergency department is unremarkable with 1st and 2nd troponin not elevated. With shared decision-making we discussed options. Given the fact that SVT is not a pathologic rhythm, workup is unremarkable he does have follow up together we agreed that discharge home would be safe. I do think that cardiac follow up would be appropriate and I do think that a stress test at the minimum if not catheterization we will be indicated to further understand the recurrent palpitations. His congestive heart failure seems to be appropriately controlled at this time. There was no indication for hospitalization he is safe for discharge <Johnathan Mohamud MD - Last Filed: 05/06/25 00:27> Lab Data Labs: Lab Results 05/05/25 05/05/25 Range/Units 15:23 19:00 WBC 9.1 (4.5-11.0) X10^3/uL RBC 3.95 L (4.5-5.9) X10^6/uL Hgb 13.3 L (13.5-17.5) g/dL Hct 38.7 L (41-53) % MCV 98.0 (80-100) fL MCH 33.5 (26-34) PG MCHC 34.2 (30-36) % RDW 13.7 (11.6-14.8) % Plt Count 325 (150-400) X10^3/uL Neut % (Auto) 67.7 (50-75) % Lymph % (Auto) 21.5 L (25-40) % [place] % (Auto) 9.8 (3-14) % Eos % (Auto) 0.4 L (2-4) % Baso % (Auto) 0.6 (0-2) % Neut # (Auto) 6200 (3800-4917) /uL Lymph # (Auto) 2000 (2551-3009) /uL [place] # (Auto) 900 (0-900) /uL Eos # (Auto) 0 (0-450) /uL Baso # (Auto) 100 (0-100) /uL PT 14.0 H (9.4-12.5) SECONDS INR 1.2 (0.9-1.3) APTT 30 (25.1-36.5) SECONDS Sodium 138 (137-145) mmol/L Potassium 4.2 (3.4-5.1) mmol/L Chloride 103 (98-107) mmol/L Carbon Dioxide 24 (22-32) mmol/L BUN 30 H (9-20) mg/dL Creatinine 2.25 H (0.66-1.25) mg/dL Estimated GFR 29 L (>60) mL/min BUN/Creatinine Ratio 13.3 (6-22) Glucose 97 (70-99) mg/dL Calcium 8.6 (8.4-10.2) mg/dL Magnesium 1.6 (1.6-2.3) mg/dL Total Bilirubin 0.4 (0.2-1.3) mg/dL AST 36 (17-59) IU/L ALT 19 (<50) IU/L Alkaline Phosphatase 88 (38-126) U/L Total Creatine Kinase 105 (55-170) U/L Troponin I 0.020 0.024 (0.01-0.034) ng/mL NT-Pro-B Natriuret Pep 1120 H (<450) pg/mL Total Protein 7.6 (6.3-8.2) g/dL Albumin 4.1 (3.5-5.0) g/dL Globulin 3.5 (1.7-4.1) g/dL Albumin/Globulin Ratio 1.2 (1.0-2.8) Lipase 232 (23-300) U/L MDM Narrative Medical decision making narrative: CC: Episode of ventricular tachycardia while exercising at cardiac rehab. No pain, palpations notable Complicating co-morbidities: Prior coronary artery disease, congestive heart failure, hypertension, hyperlipidemia, anticoagulated on apixaban Data collected from: patient Medical records reviewed: Primary care notes from Dr. Owusu are reviewed. Patient had a similar presentation to the emergency department March 17, 2025 with minimally elevated troponin and heart score of 5. He chose to leave the hospital at that time With him again on April 11 with increased dyspnea was diagnosed with congestive heart failure at that time Differential considered: Brief episode of SVT without other significant problem, NSTEMI, electrolyte abnormality, acute coronary syndrome Exam documented above, pertinent findings include: Exam is entirely benign at this time Lab Test results independently reviewed as above. Pertinent findings: CBC is unremarkable Chemistries show creatinine increased from 2-2.25. Electrolytes are otherwise unremarkable BNP is improved from a month ago down Initial troponin is low at 0.02 Independently reviewed EKG: Rhythm strip from Cardiac rehab is reviewed. EKG shows sinus rhythm at a rate of 94 without acute ischemic changes Imaging studies independently reviewed: No acute changes to suggest her failure, pneumothorax or pulmonary infiltrate Consultations: Brief discussion with Dr Bass who was uncomfortable with any recommendations as he has not examined the patient. 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 Workup in the emergency department is unremarkable with 1st and 2nd troponin not elevated. With shared decision-making we discussed options. Given the fact that SVT is not a pathologic rhythm, workup is unremarkable he does have follow up together we agreed that discharge home would be safe. I do think that cardiac follow up would be appropriate and I do think that a stress test at the minimum if not catheterization we will be indicated to further understand the recurrent palpitations. His congestive heart failure seems to be appropriately controlled at this time. There was no indication for hospitalization he is safe for discharge 05/05/25, 2030, Mohamud. Repeat troponin also quite low, no significant delta. Patient we would like to go home, aware of his troponin results, states that he will follow up with his PCP Dr. Owusu, to follow up with Cardiology as well. at bedside concurs with patient decision to be discharged home. They did not have further questions. Discharge per patient request with family. Discharge Plan Departure Patient Disposition: Home Clinical Impression: Nonsustained paroxysmal supraventricular tachycardia Instructions: DI for Arrhythmias Activity Restrictions/Additional Instructions: Thank you for coming in today It does look like you had a supraventricular tachycardia that was self-contained while you were walking on the treadmill and attached monitors at cardiac rehab. Your initial EKG shows that you are back in sinus rhythm with no sign of acute heart attack. Your initial blood work is quite reassuring with your troponin not being elevated. Your congestive heart failure markers and secondary findings on clinical exam suggest that you are doing well with your current doses of torsemide. You do need to follow up with Dr. Owusu. I think that a stress test if not cardiac consultation and perhaps cardiac catheterization as an outpatient may be indicated given the fact that you are having decreased exercise tolerance and a recent congestive heart failure exacerbation. If you find that you are getting worse or develop any new symptoms, please feel free to return to the emergency department for further evaluation. Prescriptions: No Action aspirin 325 MG tablet,delayed release (DR/EC) 325 mg PO QDAY Qty: 0 nitroglycerin 0.4 mg tablet, sublingual 0.4 mg sublingual Q5-15M PRN (Reason: chest pain) Qty: 25 3RF Rx Instructions: do not exceed 3 doses per episode amlodipine 5 mg tablet 5 mg PO DAILY Qty: 90 3RF rosuvastatin 40 mg tablet 40 mg PO DAILY Qty: 90 3RF Eliquis 2.5 mg tablet 2.5 mg PO BID Qty: 180 3RF Rx Instructions: [facility] Fax#:[phone]. Compa's ID number is [id number]. mirtazapine 30 mg tablet 30 mg PO BEDTIME Qty: 90 3RF Jardiance 25 mg tablet 25 mg PO DAILY Qty: 90 3RF duloxetine 30 mg capsule,delayed release(DR/EC) 30 mg PO DAILY Qty: 90 3RF oxycodone 5 mg tablet 5 mg PO TID PRN (Reason: pain) Qty: 180 0RF torsemide 20 mg tablet 20 mg PO DAILY Qty: 90 3RF spironolactone 25 mg tablet 25 mg PO DAILY Qty: 90 3RF tamsulosin 0.4 mg capsule 0.4 mg PO BEDTIME Qty: 90 3RF Referrals: Didier Owusu MD [Primary Care Provider, Internal Medicine] Stand Alone Forms: Patient Portal/API
[2025-05-05 20:17] LABS: Troponin I 0.024 ng/mL (0.01-0.034)
== END 2025-05-05 20:46 | disposition home or self-care (01) ==
PROVIDERS: Emergency Provider Emergency Medicine; Family Provider Internal Medicine; PCP Internal Medicine
DX: I47.10 Supraventricular tachycardia, unspecified (principal); Z79.01 Long term (current) use of anticoagulants
CPT/HCPCS: 36415; 71045; 80053; 82550; 83690; 83735; 83880; 84484; 85025; 85610; 85730; 99283; 99284